=== PATIENT | female | born 2000 | race Caucasian/White ===

== ENCOUNTER 2023-02-19 20:56 | Inpatient (IN) ==
--- NOTE | 2023-02-19 23:06 | Ultrasound Report ---
Exam(s): US OB LIMITED EXAM: US , Limited CLINICAL HISTORY: Reason for exam: to confirm 40 week demise. TECHNIQUE: Real-time limited ultrasound of the maternal uterus with image documentation. COMPARISON: Ultrasound November 11, 2022. FINDINGS: Single intrauterine gestation in cephalic presentation. Placenta is anterior. Amniotic fluid is low with OLGA of 5.7 cm. No heart motion is detected. IMPRESSION: demise. Electronically signed by: Reymundo Asencio MD 02/19/23 23:05 PM
[2023-02-19] MEDS ORDERED: LIDOCAINE 1% LOCAL 20 ML VIAL INFIL PRN (23:17)
[2023-02-19] MEDS ORDERED: OXYTOCIN 30 UNITS/500 ML BAG IV PRN ×2 (23:17→23:24)
[2023-02-19] MEDS: LACTATED RINGER'S 1,000 ML IV PRN (23:46)
--- NOTE | 2023-02-20 00:01 | History & Physical Report ---
Date of Service February 19, 2023 Assessment & Plan (1) IUFD at 20 weeks or more of gestation: Plan: 23 yo G1 at 39 3/7 wga now dx w/ IUFD at term. -VSS -Condolences given to pt and her . Discussed potential causes to IUFD including unexplained. Discussed lab evaluation, genetics, and autopsy evaluation in detail with possibility of no cause being found despite all of this. Discussed induction now vs scheduling induction later this week if needs time to process -pt amenable to initiating lab evaluation, she will consider genetics and autopsy for further evaluation -would like to start induction process now. Cervix is 3-4cm so will start pit. Epidural available at her request -ample time given for questions, answered to apparent satisfaction Admission and Anticipated Discharge Date Admission Date: February 19, 2023 History of Present Illness Chief Complaint: ctx, decreased fm Primary Care Provider: NO PCP 23 yo G1 at 39 3/7 wga presents w/ c/o ctx increasing in frequency and intensity. Mucous plug fell out and had small amount of bleeding but none after. Denies LOF. Notes has had less movement over last week but reported a little bit of movement earlier today PNI: [facility] Past SPEECH LANGUAGE THERAPIST Hx: regular cycles denies hx STIs 09/2022 neg cyto Allergies Allergy/AdvReac Type Severity Reaction Status Date / Time No Known Allergies Allergy Verified 02/13/23 09:13 Home Medications Medication Instructions Recorded Confirmed Type prenat.vits,mary,vsi-[id number] 1 tab PO DAILY 08/01/22 02/19/23 History Patient History Medical History (Updated 02/19/23 @ 23:58 by Shahnaz Addison MD) History of chicken pox Surgical History S/P wisdom tooth extraction Family History Grandmother (Maternal) Breast cancer Grandfather (Maternal) Colorectal cancer great grandfather Grandmother (Maternal) Ovarian cancer great grandmother Social History (Updated 02/12/23 @ 16:39 by Lisa Aldana, RN) Smoking Status: Never smoker Hx Alcohol Use: No Hx Substance Use: No Preferred Language: Trinidadian Communication Ability: Effective Timber Harvester Operator Required: No Beliefs That Will Affect Care: None marital status: marital status details: Ben Bravo (24) [phone] Current Living Situation: Spouse Current Living Situation Comment: lives with spouse, dog, cat-spouse changing litter current occupational status: employed current occupation: [employer] Feels Safe at Home: Yes Safety Concerns: Feels Safe At This Time Assistive Devices: None Physical Exam Genitourinary: OB Exam Abdomen: + vertex Manual OB Exam: + cervical dilation 3 cm, + cervical effacement 70% and + station -2 Nursing unable to identify FHT and so I was called to bedside. My bedside US did not identify heart motion. Formal US was ordered stat and confirmed no FHT c/w IUFD Results & Data Vital Signs (Past 12 Hours) Vital Signs Temp Pulse Resp BP Pulse Ox 02/19/23 21:20 98 02/19/23 21:20 114 H 02/19/23 21:15 110 H 98 02/19/23 21:10 97 02/19/23 21:10 93 H 02/19/23 21:10 84 133/70 02/19/23 21:10 98.1 F 18 Laboratory Results OB Labs: Blood Type A Positive 08/17/22 Antibody Screen NEGATIVE 08/17/22 Hemoglobin 12.3 g/dl (12.0-16.0) 12/02/22 Hematocrit 35.3 % (34.1-44.9) 12/02/22 Mean Corpuscular Volume 91.4 fL (80.0-100.0) 08/17/22 Platelet Count 267 K/uL (130-400) 08/17/22 Rubella IgG Antibody Immune (Immune) 08/17/22 Rapid Plasma Reagin Nonreactive (Nonreactive) 12/02/22 Hepatitis B Surface Antigen. NON-REACTIVE (NON-REACTIVE) 08/17/22 Hepatitis C Antibody (EIA) NON-REACTIVE (NON-REACTIVE) 08/17/22 HIV (1&2) Ag and Ab Confirmation NON-REACTIVE (NON-REACTIVE) 08/17/22 Glucose 1 Hour 50 gm Load 107 mg/dl (70-130) 12/02/22 Maternal Serum Alpha Fetoprotein 54.3 ng/mL 09/19/22 OB Optional Labs: Chlamydia trachomatis RNA Not Detected (NotDetected) 08/17/22 Neisseria gonorrhoeae RNA Not Detected (NotDetected) 08/17/22 Alpha Fetoprotein Triple Screen SEE NOTE 09/19/22 low risk cfdna gbs neg Coding Level of Care Code None Diagnoses IUFD at 20 weeks or more of gestation O36.4XX0
[2023-02-20 00:12] LABS: Alanine Aminotransferase 19 U/L (7-52); Albumin Globulin Ratio 1.1 (0.9-2); Albumin Level 3.5 gm/dl (3.4-5.0); Alkaline Phosphatase 150 U/L (34-104); Anion Gap 10 (3-11); Aspartate Aminotransferase 22 U/L (13-39); BUN Creatinine Ratio 13.2 (10-20); Bilirubin,Total 0.3 mg/dl (0.2-1.0); Blood Urea Nitrogen 7 mg/dl (6-23); Calcium 9.4 mg/dl (8.6-10.3); Carbon Dioxide 20 mmol/L (21-32); Chloride 106 mmol/L (98-107); Creatinine Clr Calc Pharmacy 188.8 ml/min; Est GFR (African American) > 150.0 ml/min; Est GFR (Non-African American) 134.8 ml/min; Globulin 3.1 gm/dl (2.5-4.0); Glucose 91 mg/dl (70-99(Fasting)); Potassium 3.8 mmol/L (3.5-5.1); Sodium 136 mmol/L (136-145); Total Protein 6.6 gm/dl (6.0-8.3)
[2023-02-20 00:18] LABS: Hematocrit (blood only) 34.5 % (37.0-47.0); Hemoglobin 12.5 g/dl (12.0-16.0); Mean Corpuscular Hemoglobin 32.4 pg (25.0-34.0); Mean Corpuscular Hgb Conc 36.2 g/dL (32.0-36.0); Mean Corpuscular Volume 89.4 fL (80.0-100.0); Mean Platelet Volume 11.3 fL (9.4-12.4); Platelet Count 227 K/uL (130-400); RDW Coefficient of Variation 12.9 % (11.5-14.5); RDW Standard Deviation 42.3 fL (36.4-46.3); Red Blood Count 3.86 M/uL (4.20-5.40); White Blood Count 11.53 K/ul (4.8-10.8)
[2023-02-20 01:08] LABS: Fibrinogen 485 mg/dl (184-400); INR 0.9 (0.9-1.1); Partial Thromboplastin Time 26.2 Seconds (21.0-31.0); Prothrombin Time 9.7 Seconds (9.0-12.0)
[2023-02-20] MEDS ORDERED: BUPIVACAINE 0.25% PF 30 ML VIAL ONE (01:58)
[2023-02-20] MEDS ORDERED: SODIUM CHLORIDE 0.9% PF INJ 10 ML VIAL ONE (01:58)
[2023-02-20] MEDS ORDERED: fentaNYL citrate PF 100 MCG/2 ML VIAL ONE (01:58)
[2023-02-20] MEDS ORDERED: LIDOCAINE 2%/EPINEPHRINE 1:200,000 20 ML PF ONE (01:58)
[2023-02-20] MEDS ORDERED: ePHEDrine sulfate 50 MG/ML AMP ONE (01:58)
[2023-02-20] MEDS ORDERED: fentaNYL 2MCG/ML ROPIVACAINE 1.25MG/ML 100 ML BAG EPI ONE (01:59)
[2023-02-20 02:13] LABS: Amphetamines+Metham, Urine Neg (Neg); Barbiturates, Urine Neg (Neg); Benzodiazepine, Urine Neg (Neg); Cocaine, Urine Neg (Neg); MDMA (Ecstacy), Urine Neg (Neg); Methadone, Urine Neg (Neg); Opiate, Urine Neg (Neg); Phencyclidine, Urine Neg (Neg)
[2023-02-20] MEDS ORDERED: MIDAZOLAM HCL 1 MG/ML 2ML VIAL ONE (02:25)
[2023-02-20] MEDS: LACTATED RINGER'S 1,000 ML IV PRN ×2 (02:43→10:47)
[2023-02-20] MEDS ORDERED: diphenhydrAMINE 50 MG/ML VIAL IV PRN (02:51)
[2023-02-20] MEDS ORDERED: fentaNYL 2MCG/ML ROPIVACAINE 1.25MG/ML 100 ML BAG EPI PRN (02:51)
[2023-02-20] MEDS ORDERED: NALOXONE HCL 1 MG in SODIUM CHLORIDE 0.9% 1000ML 1,000 ML IV PRN (02:51)
[2023-02-20] MEDS ORDERED: NALBUPHINE HCL INJ 10 MG/ML AMP IV PRN (02:51)
[2023-02-20] MEDS ORDERED: ONDANSETRON INJ 2 MG/ML 2 ML VIAL IV PRN (02:51)
[2023-02-20] MEDS ORDERED: ePHEDrine sulfate 50 MG/ML AMP IV PRN (02:51)
[2023-02-20] MEDS ORDERED: NALOXONE HCL 0.4 MG/1 ML VIAL/CARP IV PRN (02:51)
[2023-02-20] MEDS ORDERED: PROMETHAZINE HCL 6.25 MG in SODIUM CHLORIDE 0.9% 50 ML IV PRN (02:51)
--- NOTE | 2023-02-20 02:51 | Anesthesiology Consultation ---
Date of Service February 20, 2023 Assessment & Plan Chart Review Chart Review: Acceptable Risk for Surgery and Patient NOT seen in Pre Admission Testing Consults Requested none ASA ASA2 Proposed Anesthesia Anesthesia Type: CSE Risk / Benefits Reviewed With: PT / POA / Parent / Guardian, Accepts Plan and Informed Consent Obtained History Height/Weight Height: 5 ft 4 in Weight: 97.522 kg Allergies Allergy/AdvReac Type Severity Reaction Status Date / Time No Known Allergies Allergy Verified 02/13/23 09:13 Medications Home Medications Medication Instructions Recorded Confirmed Last Taken prenat.vits,mary,gbj-fzwl-auxbh 1 tab PO DAILY 08/01/22 02/19/23 02/12/23 Active Medications Generic Name Dose Route Start Last Admin Trade Name Freq PRN Reason Stop Dose Admin Lactated Ringer's 1,000 mls @ 125 mls/hr 02/19/23 23:17 02/20/23 02:43 Lr IV 02/21/23 23:16 125 mls/hr .Q8H PRN Administration L&D Protocol Protocol Oxytocin 30 units in 500 mls @ 6 mls/hr 02/19/23 23:24 02/20/23 01:45 Pitocin IV 02/21/23 23:23 0.36 units/hr .Q24H PRN 6 mls/hr Labor Induction/Augmentation Titration Protocol 0.36 UNITS/HR Past Medical History Medical History (Updated 02/19/23 @ 23:58 by Shahnaz Addison MD) History of chicken pox Exercise / Class Metabolic Activity II 4-5 Yardwork/Stairs/Walk up hill Past Family History Family History Grandmother (Maternal) Breast cancer Grandfather (Maternal) Colorectal cancer great grandfather Grandmother (Maternal) Ovarian cancer great grandmother Past Surgical History Surgical History S/P wisdom tooth extraction Past Anesthesia History No Hx of Anesthesia Complications and No Family Hx of Anesthesia Complications History of PONV No Hx of PONV and No Hx of Motion Sickness Social History Smoking Status: Never smoker Hx Alcohol Use: No Hx Substance Use: No Physical Exam Vital Signs Last Vital Signs Temp 36.7 C 02/19/23 21:10 Pulse 96 H 02/20/23 02:48 Resp 18 02/20/23 02:45 BP 131/78 02/20/23 02:48 Pulse Ox 96 02/20/23 02:45 ENMT Mouth: no dentition abnormality Thyromental Distance: > or= 3.5 Finger Breadths Mallampati Class: II Neck normal visual inspection Respiratory normal respiratory effort Auscultation: lungs clear to auscultation bilaterally Cardiovascular Rate/Rhythm: regular rate and regular rhythm Psychiatric Orientation: alert Testing Laboratory Results 02/19/23 23:35 02/19/23 23:35 PT 9.7 Seconds (9.0-12.0) 02/19/23 23:35 INR 0.9 (0.9-1.1) 02/19/23 23:35 APTT 26.2 Seconds (21.0-31.0) 02/19/23 23:35
[2023-02-20] MEDS ORDERED: MoRPHine SULFATE 2 MG/ML CARP IV PRN (02:52)
--- NOTE | 2023-02-20 04:13 | Labor Progress Brief Note ---
Date of Service February 20, 2023 Subjective comfortable w/ epidural Assessment & Plan (1) IUFD at 20 weeks or more of gestation: Plan: 23 yo G1 at 39 4/7 wga admitted w/ IUFD -VSS -pit at 6, now arom for very dark meconium fluid after cervix unchanged from prior nursing exam. Continue induction -labs thus far have been wnl Admission and Anticipated Discharge Date Admission Date: February 19, 2023 Physical Exam Genitourinary: Manual OB Exam: + cervical dilation 7 cm, + cervical effacement 90%, + station -1 and + amniotic fluid (thick meconium) Results & Data Vital Signs (Past 12 Hours) Vital Signs Temp Pulse Resp BP Pulse Ox 02/20/23 04:09 89 94 02/20/23 04:05 86 96 02/20/23 04:00 87 94 02/20/23 03:58 88 94 02/20/23 03:55 87 93 02/20/23 03:54 83 127/70 02/20/23 03:52 89 94 02/20/23 03:50 81 18 93 02/20/23 03:45 82 93 02/20/23 03:40 20 02/20/23 03:40 20 02/20/23 03:40 94 02/20/23 03:40 79 02/20/23 03:40 83 128/72 02/20/23 03:35 85 94 02/20/23 03:30 82 94 02/20/23 03:28 81 94 02/20/23 03:25 80 20 135/72 94 02/20/23 03:23 81 94 02/20/23 03:20 86 95 02/20/23 03:15 93 H 96 02/20/23 03:10 18 02/20/23 03:10 88 18 129/82 97 02/20/23 03:05 96 H 97 02/20/23 03:04 88 93 02/20/23 03:00 98 H 96 02/20/23 02:55 101 H 18 95 02/20/23 02:53 100 H 116/63 02/20/23 02:50 106 H 18 96 02/20/23 02:51 101 H 117/63 02/20/23 02:48 96 H 131/78 02/20/23 02:45 18 02/20/23 02:45 18 02/20/23 02:47 96 H 127/75 02/20/23 02:45 96 02/20/23 02:45 103 H 02/20/23 02:45 91 H 133/82 02/20/23 02:43 85 130/83 02/20/23 02:41 88 131/83 02/20/23 02:40 89 96 02/20/23 02:35 105 H 97 02/20/23 02:30 100 H 96 02/20/23 01:49 95 H 125/70 02/20/23 00:52 94 H 140/90 02/19/23 21:20 98 02/19/23 21:20 114 H 02/19/23 21:15 110 H 98 02/19/23 21:10 97 02/19/23 21:10 93 H 02/19/23 21:10 84 133/70 02/19/23 21:10 98.1 F 18 Coding Level of Care Code None Diagnoses IUFD at 20 weeks or more of gestation O36.4XX0
--- NOTE | 2023-02-20 09:06 | Labor Progress Brief Note ---
Date of Service February 20, 2023 Subjective denies pain. feels pressure. pit at 14 Assessment & Plan (1) IUFD at 20 weeks or more of gestation: Plan will reeval cx for 2nd stage in 1-2hr. pt to let us know if increased pressure in meantime. support given for loss. partner in room. aware i am taking over care. Admission and Anticipated Discharge Date Admission Date: February 19, 2023 Physical Exam Constitutional: WD/WN, vitals as above Genitourinary: Manual OB Exam: + cervical dilation 9 cm, + cervical effacement 100% and + station + 1 OB Exam Monitor Tracing: + external uterine monitor used (q2) Results & Data Vital Signs (Past 12 Hours) Vital Signs Temp Pulse Resp BP Pulse Ox 02/20/23 07:30 98.2 F 20 02/20/23 09:00 92 H 96 02/20/23 08:55 100 H 96 02/20/23 08:54 98 H 125/69 02/20/23 08:50 101 H 94 02/20/23 08:45 93 H 94 02/20/23 08:40 92 H 95 02/20/23 08:39 88 116/64 02/20/23 08:31 20 02/20/23 08:31 20 02/20/23 08:35 87 93 02/20/23 08:30 88 94 02/20/23 07:31 20 02/20/23 07:31 20 02/20/23 08:25 88 94 02/20/23 08:24 93 H 119/67 02/20/23 08:20 88 94 02/20/23 08:15 90 94 02/20/23 08:10 95 02/20/23 08:10 100 H 02/20/23 08:10 85 116/59 L 02/20/23 08:05 83 93 02/20/23 08:00 82 94 02/20/23 07:55 93 H 94 02/20/23 07:54 81 107/59 L 02/20/23 07:50 86 95 02/20/23 07:45 86 95 02/20/23 07:40 85 95 02/20/23 07:39 90 111/59 L 02/20/23 07:35 93 H 96 02/20/23 07:30 94 H 96 02/20/23 07:25 92 H 96 02/20/23 07:24 86 106/55 L 02/20/23 07:22 90 94 02/20/23 07:20 101 H 95 02/20/23 07:15 101 H 20 96 02/20/23 07:10 100 H 94 02/20/23 07:11 97 H 94 02/20/23 07:09 93 H 134/77 02/20/23 07:05 95 02/20/23 07:05 91 H 02/20/23 07:05 98 H 94 02/20/23 07:00 89 94 02/20/23 06:59 94 H 94 02/20/23 06:55 95 H 94 02/20/23 06:53 89 94 02/20/23 06:54 98 H 136/79 02/20/23 06:50 90 94 02/20/23 06:45 90 94 02/20/23 06:40 93 H 94 02/20/23 04:12 18 02/20/23 04:12 98.2 F 18 02/20/23 06:39 88 132/76 94 02/20/23 06:35 102 H 94 02/20/23 06:32 85 94 02/20/23 06:30 91 H 94 02/20/23 06:26 92 H 94 02/20/23 06:25 95 H 93 02/20/23 06:24 96 H 131/77 02/20/23 06:20 89 93 02/20/23 06:19 96 H 94 02/20/23 06:15 93 H 94 02/20/23 06:10 102 H 95 02/20/23 06:09 102 H 131/80 94 02/20/23 06:05 18 02/20/23 06:05 98.6 F 102 H 18 96 02/20/23 06:00 97 H 95 02/20/23 06:01 97 H 94 02/20/23 05:55 118 H 96 02/20/23 05:54 105 H 130/78 02/20/23 05:50 99 H 94 02/20/23 05:49 107 H 94 02/20/23 05:45 104 H 95 02/20/23 05:44 107 H 94 02/20/23 05:40 99 H 96 02/20/23 05:39 106 H 127/70 02/20/23 05:38 104 H 94 02/20/23 05:35 109 H 95 02/20/23 05:30 90 93 02/20/23 05:25 94 02/20/23 05:25 91 H 02/20/23 05:25 94 H 94 02/20/23 05:24 96 H 126/72 02/20/23 05:20 95 H 94 02/20/23 05:15 90 94 02/20/23 05:12 91 H 94 02/20/23 05:10 86 136/80 95 02/20/23 05:06 94 H 93 02/20/23 05:05 92 H 97 02/20/23 05:00 103 H 96 02/20/23 04:59 85 94 02/20/23 04:55 85 94 02/20/23 04:54 88 02/20/23 04:54 90 130/87 93 02/20/23 04:50 87 94 02/20/23 04:45 94 H 94 02/20/23 04:40 95 H 96 02/20/23 04:39 92 H 129/77 02/20/23 04:35 90 95 02/20/23 04:30 98 H 97 02/20/23 04:25 95 02/20/23 04:25 87 02/20/23 04:25 93 H 94 02/20/23 04:24 86 131/79 02/20/23 04:20 87 97 02/20/23 04:19 92 H 94 02/20/23 04:15 112 H 98 02/20/23 04:10 86 94 02/20/23 04:09 93 H 02/20/23 04:09 89 134/79 94 02/20/23 04:05 86 96 02/20/23 04:00 87 94 02/20/23 03:58 88 94 02/20/23 03:55 87 93 02/20/23 03:54 83 127/70 02/20/23 03:52 89 94 02/20/23 03:50 81 18 93 02/20/23 03:45 82 93 02/20/23 03:40 20 02/20/23 03:40 20 02/20/23 03:40 94 02/20/23 03:40 79 02/20/23 03:40 83 128/72 02/20/23 03:35 85 94 02/20/23 03:30 82 94 02/20/23 03:28 81 94 02/20/23 03:25 80 20 135/72 94 02/20/23 03:23 81 94 02/20/23 03:20 86 95 02/20/23 03:15 93 H 96 02/20/23 03:10 18 02/20/23 03:10 88 18 129/82 97 02/20/23 03:05 96 H 97 02/20/23 03:04 88 93 02/20/23 03:00 98.2 F 98 H 18 96 02/20/23 02:55 101 H 18 95 02/20/23 02:53 100 H 116/63 02/20/23 02:50 106 H 18 96 02/20/23 02:51 101 H 117/63 02/20/23 02:48 96 H 131/78 02/20/23 02:45 18 02/20/23 02:45 18 02/20/23 02:47 96 H 127/75 02/20/23 02:45 96 02/20/23 02:45 103 H 02/20/23 02:45 91 H 133/82 02/20/23 02:43 85 130/83 02/20/23 02:41 88 131/83 02/20/23 02:40 89 96 02/20/23 02:35 105 H 97 02/20/23 02:30 100 H 96 02/20/23 01:49 95 H 125/70 02/20/23 00:52 94 H 140/90 02/19/23 21:20 98 02/19/23 21:20 114 H 02/19/23 21:15 110 H 98 02/19/23 21:10 97 02/19/23 21:10 93 H 02/19/23 21:10 84 133/70 02/19/23 21:10 98.1 F 18 Coding Level of Care Code None Diagnoses IUFD at 20 weeks or more of gestation O36.4XX0
[2023-02-20 09:33] LABS: Estimated Average Glucose 100 mg/dl; Hemoglobin A1C 5.1 % (4.5-5.6)
--- NOTE | 2023-02-20 11:23 | Labor Progress Brief Note ---
Date of Service February 20, 2023 Subjective feeling pressure. wants to push Assessment & Plan (1) IUFD at 20 weeks or more of gestation: Plan Begin 2nd stage. support given. Admission and Anticipated Discharge Date Admission Date: February 19, 2023 Physical Exam Constitutional: WD/WN, vitals as above Genitourinary: Manual OB Exam: + cervical dilation 10 cm, + cervical effacement 100% and + station + 2 OB Exam Monitor Tracing: + external uterine monitor used (q2-3.5 pit at 18) Results & Data Vital Signs (Past 12 Hours) Vital Signs Temp Pulse Resp BP Pulse Ox 02/20/23 07:30 98.2 F 20 02/20/23 11:20 111 H 96 02/20/23 11:15 133 H 98 02/20/23 11:10 107 H 94 02/20/23 11:09 101 H 127/68 02/20/23 11:05 102 H 96 02/20/23 11:00 93 H 94 02/20/23 10:55 93 02/20/23 10:55 98 H 02/20/23 10:55 97 H 117/61 02/20/23 10:50 97 H 94 02/20/23 10:01 20 02/20/23 10:01 20 02/20/23 10:31 20 02/20/23 10:31 20 02/20/23 10:45 108 H 96 02/20/23 10:40 104 H 96 02/20/23 10:39 94 H 115/65 02/20/23 10:35 113 H 96 02/20/23 10:30 105 H 96 02/20/23 10:01 20 02/20/23 10:01 20 02/20/23 10:25 98 H 94 02/20/23 10:24 98 H 105/62 02/20/23 09:01 20 02/20/23 09:01 20 02/20/23 09:31 20 02/20/23 09:31 20 02/20/23 10:20 103 H 94 02/20/23 10:15 106 H 95 02/20/23 10:10 110 H 97 02/20/23 10:09 102 H 136/78 02/20/23 10:05 100 H 96 02/20/23 10:00 96 H 96 02/20/23 09:55 104 H 96 02/20/23 09:54 102 H 137/87 02/20/23 09:50 100 H 96 02/20/23 09:45 101 H 95 02/20/23 09:40 96 02/20/23 09:40 101 H 02/20/23 09:40 99 H 132/78 02/20/23 09:35 97 H 95 02/20/23 09:30 102 H 96 02/20/23 09:26 106 H 133/76 02/20/23 09:25 114 H 95 02/20/23 09:20 104 H 95 02/20/23 09:15 99 H 95 02/20/23 09:10 109 H 96 02/20/23 09:09 100 H 121/68 02/20/23 09:05 106 H 96 02/20/23 09:00 92 H 96 02/20/23 08:55 100 H 96 02/20/23 08:54 98 H 125/69 02/20/23 08:50 101 H 94 02/20/23 08:45 93 H 94 02/20/23 08:40 92 H 95 02/20/23 08:39 88 116/64 02/20/23 08:31 20 02/20/23 08:31 20 02/20/23 08:35 87 93 02/20/23 08:30 88 94 02/20/23 07:31 20 02/20/23 07:31 20 02/20/23 08:25 88 94 02/20/23 08:24 93 H 119/67 02/20/23 08:20 88 94 02/20/23 08:15 90 94 02/20/23 08:10 95 02/20/23 08:10 100 H 02/20/23 08:10 85 116/59 L 02/20/23 08:05 83 93 02/20/23 08:00 82 94 02/20/23 07:55 93 H 94 02/20/23 07:54 81 107/59 L 02/20/23 07:50 86 95 02/20/23 07:45 86 95 02/20/23 07:40 85 95 02/20/23 07:39 90 111/59 L 02/20/23 07:35 93 H 96 02/20/23 07:30 94 H 96 02/20/23 07:25 92 H 96 02/20/23 07:24 86 106/55 L 02/20/23 07:22 90 94 02/20/23 07:20 101 H 95 02/20/23 07:15 101 H 20 96 02/20/23 07:10 100 H 94 02/20/23 07:11 97 H 94 02/20/23 07:09 93 H 134/77 02/20/23 07:05 95 02/20/23 07:05 91 H 02/20/23 07:05 98 H 94 02/20/23 07:00 89 94 02/20/23 06:59 94 H 94 02/20/23 06:55 95 H 94 02/20/23 06:53 89 94 02/20/23 06:54 98 H 136/79 02/20/23 06:50 90 94 02/20/23 06:45 90 94 02/20/23 06:40 93 H 94 02/20/23 04:12 18 02/20/23 04:12 98.2 F 18 02/20/23 06:39 88 132/76 94 02/20/23 06:35 102 H 94 02/20/23 06:32 85 94 02/20/23 06:30 91 H 94 02/20/23 06:26 92 H 94 02/20/23 06:25 95 H 93 02/20/23 06:24 96 H 131/77 02/20/23 06:20 89 93 02/20/23 06:19 96 H 94 02/20/23 06:15 93 H 94 02/20/23 06:10 102 H 95 02/20/23 06:09 102 H 131/80 94 02/20/23 06:05 18 02/20/23 06:05 98.6 F 102 H 18 96 02/20/23 06:00 97 H 95 02/20/23 06:01 97 H 94 02/20/23 05:55 118 H 96 02/20/23 05:54 105 H 130/78 02/20/23 05:50 99 H 94 02/20/23 05:49 107 H 94 02/20/23 05:45 104 H 95 02/20/23 05:44 107 H 94 02/20/23 05:40 99 H 96 02/20/23 05:39 106 H 127/70 02/20/23 05:38 104 H 94 02/20/23 05:35 109 H 95 02/20/23 05:30 90 93 02/20/23 05:25 94 02/20/23 05:25 91 H 02/20/23 05:25 94 H 94 02/20/23 05:24 96 H 126/72 02/20/23 05:20 95 H 94 02/20/23 05:15 90 94 02/20/23 05:12 91 H 94 02/20/23 05:10 86 136/80 95 02/20/23 05:06 94 H 93 02/20/23 05:05 92 H 97 02/20/23 05:00 103 H 96 02/20/23 04:59 85 94 02/20/23 04:55 85 94 02/20/23 04:54 88 02/20/23 04:54 90 130/87 93 02/20/23 04:50 87 94 02/20/23 04:45 94 H 94 02/20/23 04:40 95 H 96 02/20/23 04:39 92 H 129/77 02/20/23 04:35 90 95 02/20/23 04:30 98 H 97 02/20/23 04:25 95 02/20/23 04:25 87 02/20/23 04:25 93 H 94 02/20/23 04:24 86 131/79 02/20/23 04:20 87 97 02/20/23 04:19 92 H 94 02/20/23 04:15 112 H 98 02/20/23 04:10 86 94 02/20/23 04:09 93 H 02/20/23 04:09 89 134/79 94 02/20/23 04:05 86 96 02/20/23 04:00 87 94 02/20/23 03:58 88 94 02/20/23 03:55 87 93 02/20/23 03:54 83 127/70 02/20/23 03:52 89 94 02/20/23 03:50 81 18 93 02/20/23 03:45 82 93 02/20/23 03:40 20 02/20/23 03:40 20 02/20/23 03:40 94 02/20/23 03:40 79 02/20/23 03:40 83 128/72 02/20/23 03:35 85 94 02/20/23 03:30 82 94 02/20/23 03:28 81 94 02/20/23 03:25 80 20 135/72 94 02/20/23 03:23 81 94 02/20/23 03:20 86 95 02/20/23 03:15 93 H 96 02/20/23 03:10 18 02/20/23 03:10 88 18 129/82 97 02/20/23 03:05 96 H 97 02/20/23 03:04 88 93 02/20/23 03:00 98.2 F 98 H 18 96 02/20/23 02:55 101 H 18 95 02/20/23 02:53 100 H 116/63 02/20/23 02:50 106 H 18 96 02/20/23 02:51 101 H 117/63 02/20/23 02:48 96 H 131/78 02/20/23 02:45 18 02/20/23 02:45 18 02/20/23 02:47 96 H 127/75 02/20/23 02:45 96 02/20/23 02:45 103 H 02/20/23 02:45 91 H 133/82 02/20/23 02:43 85 130/83 02/20/23 02:41 88 131/83 02/20/23 02:40 89 96 02/20/23 02:35 105 H 97 02/20/23 02:30 100 H 96 02/20/23 01:49 95 H 125/70 02/20/23 00:52 94 H 140/90 Coding Level of Care Code None Diagnoses IUFD at 20 weeks or more of gestation O36.4XX0
--- NOTE | 2023-02-20 12:01 | Labor Progress Brief Note ---
Date of Service February 20, 2023 Subjective pushing. Assessment & Plan (1) IUFD at 20 weeks or more of gestation: Plan pt will pause from pushing. pit max increased to try to get better pattern. Admission and Anticipated Discharge Date Admission Date: February 19, 2023 Physical Exam Constitutional: WD/WN, vitals as above Genitourinary: Manual OB Exam: + cervical dilation (no change, station no change) OB Exam Monitor Tracing: + external uterine monitor used (q1.5-3.5) Results & Data Vital Signs (Past 12 Hours) Vital Signs Temp Pulse Resp BP Pulse Ox 02/20/23 09:30 98.1 F 02/20/23 07:30 98.2 F 20 02/20/23 11:55 118 H 97 02/20/23 11:54 106 H 120/57 L 02/20/23 11:44 99.0 F 02/20/23 11:50 99 H 96 02/20/23 11:45 136 H 98 02/20/23 11:40 96 02/20/23 11:40 103 H 02/20/23 11:40 100 H 122/62 02/20/23 11:35 105 H 97 02/20/23 11:30 107 H 96 02/20/23 11:25 123 H 94 02/20/23 11:24 108 H 114/57 L 02/20/23 10:31 20 02/20/23 10:31 20 02/20/23 11:20 111 H 96 02/20/23 11:15 133 H 98 02/20/23 11:10 107 H 94 02/20/23 11:09 101 H 127/68 02/20/23 11:05 102 H 96 02/20/23 11:00 93 H 94 02/20/23 10:55 93 02/20/23 10:55 98 H 02/20/23 10:55 97 H 117/61 02/20/23 10:50 97 H 94 02/20/23 10:01 20 02/20/23 10:01 20 02/20/23 10:31 20 02/20/23 10:31 20 02/20/23 10:45 108 H 96 02/20/23 10:40 104 H 96 02/20/23 10:39 94 H 115/65 02/20/23 10:35 113 H 96 02/20/23 10:30 105 H 96 02/20/23 10:01 20 02/20/23 10:01 20 02/20/23 10:25 98 H 94 02/20/23 10:24 98 H 105/62 02/20/23 09:01 20 02/20/23 09:01 20 02/20/23 09:31 20 02/20/23 09:31 20 02/20/23 10:20 103 H 94 02/20/23 10:15 106 H 95 02/20/23 10:10 110 H 97 02/20/23 10:09 102 H 136/78 02/20/23 10:05 100 H 96 02/20/23 10:00 96 H 96 02/20/23 09:55 104 H 96 02/20/23 09:54 102 H 137/87 02/20/23 09:50 100 H 96 02/20/23 09:45 101 H 95 02/20/23 09:40 96 02/20/23 09:40 101 H 02/20/23 09:40 99 H 132/78 02/20/23 09:35 97 H 95 02/20/23 09:30 102 H 96 02/20/23 09:26 106 H 133/76 02/20/23 09:25 114 H 95 02/20/23 09:20 104 H 95 02/20/23 09:15 99 H 95 02/20/23 09:10 109 H 96 02/20/23 09:09 100 H 121/68 02/20/23 09:05 106 H 96 02/20/23 09:00 92 H 96 02/20/23 08:55 100 H 96 02/20/23 08:54 98 H 125/69 02/20/23 08:50 101 H 94 02/20/23 08:45 93 H 94 02/20/23 08:40 92 H 95 02/20/23 08:39 88 116/64 02/20/23 08:31 20 02/20/23 08:31 20 02/20/23 08:35 87 93 02/20/23 08:30 88 94 02/20/23 07:31 20 02/20/23 07:31 20 02/20/23 08:25 88 94 02/20/23 08:24 93 H 119/67 02/20/23 08:20 88 94 02/20/23 08:15 90 94 02/20/23 08:10 95 02/20/23 08:10 100 H 02/20/23 08:10 85 116/59 L 02/20/23 08:05 83 93 02/20/23 08:00 82 94 02/20/23 07:55 93 H 94 02/20/23 07:54 81 107/59 L 02/20/23 07:50 86 95 02/20/23 07:45 86 95 02/20/23 07:40 85 95 02/20/23 07:39 90 111/59 L 02/20/23 07:35 93 H 96 02/20/23 07:30 94 H 96 02/20/23 07:25 92 H 96 02/20/23 07:24 86 106/55 L 02/20/23 07:22 90 94 02/20/23 07:20 101 H 95 02/20/23 07:15 101 H 20 96 02/20/23 07:10 100 H 94 02/20/23 07:11 97 H 94 02/20/23 07:09 93 H 134/77 02/20/23 07:05 95 02/20/23 07:05 91 H 02/20/23 07:05 98 H 94 02/20/23 07:00 89 94 02/20/23 06:59 94 H 94 02/20/23 06:55 95 H 94 02/20/23 06:53 89 94 02/20/23 06:54 98 H 136/79 02/20/23 06:50 90 94 02/20/23 06:45 90 94 02/20/23 06:40 93 H 94 02/20/23 04:12 18 02/20/23 04:12 98.2 F 18 02/20/23 06:39 88 132/76 94 02/20/23 06:35 102 H 94 02/20/23 06:32 85 94 02/20/23 06:30 91 H 94 02/20/23 06:26 92 H 94 02/20/23 06:25 95 H 93 02/20/23 06:24 96 H 131/77 02/20/23 06:20 89 93 02/20/23 06:19 96 H 94 02/20/23 06:15 93 H 94 02/20/23 06:10 102 H 95 02/20/23 06:09 102 H 131/80 94 02/20/23 06:05 18 02/20/23 06:05 98.6 F 102 H 18 96 02/20/23 06:00 97 H 95 02/20/23 06:01 97 H 94 02/20/23 05:55 118 H 96 02/20/23 05:54 105 H 130/78 02/20/23 05:50 99 H 94 02/20/23 05:49 107 H 94 02/20/23 05:45 104 H 95 02/20/23 05:44 107 H 94 02/20/23 05:40 99 H 96 02/20/23 05:39 106 H 127/70 02/20/23 05:38 104 H 94 02/20/23 05:35 109 H 95 02/20/23 05:30 90 93 02/20/23 05:25 94 02/20/23 05:25 91 H 02/20/23 05:25 94 H 94 02/20/23 05:24 96 H 126/72 02/20/23 05:20 95 H 94 02/20/23 05:15 90 94 02/20/23 05:12 91 H 94 02/20/23 05:10 86 136/80 95 02/20/23 05:06 94 H 93 02/20/23 05:05 92 H 97 02/20/23 05:00 103 H 96 02/20/23 04:59 85 94 02/20/23 04:55 85 94 02/20/23 04:54 88 02/20/23 04:54 90 130/87 93 02/20/23 04:50 87 94 02/20/23 04:45 94 H 94 02/20/23 04:40 95 H 96 02/20/23 04:39 92 H 129/77 02/20/23 04:35 90 95 02/20/23 04:30 98 H 97 02/20/23 04:25 95 02/20/23 04:25 87 02/20/23 04:25 93 H 94 02/20/23 04:24 86 131/79 02/20/23 04:20 87 97 02/20/23 04:19 92 H 94 02/20/23 04:15 112 H 98 02/20/23 04:10 86 94 02/20/23 04:09 93 H 02/20/23 04:09 89 134/79 94 02/20/23 04:05 86 96 02/20/23 04:00 87 94 02/20/23 03:58 88 94 02/20/23 03:55 87 93 02/20/23 03:54 83 127/70 02/20/23 03:52 89 94 02/20/23 03:50 81 18 93 02/20/23 03:45 82 93 02/20/23 03:40 20 02/20/23 03:40 20 02/20/23 03:40 94 02/20/23 03:40 79 02/20/23 03:40 83 128/72 02/20/23 03:35 85 94 02/20/23 03:30 82 94 02/20/23 03:28 81 94 02/20/23 03:25 80 20 135/72 94 02/20/23 03:23 81 94 02/20/23 03:20 86 95 02/20/23 03:15 93 H 96 02/20/23 03:10 18 02/20/23 03:10 88 18 129/82 97 02/20/23 03:05 96 H 97 02/20/23 03:04 88 93 02/20/23 03:00 98.2 F 98 H 18 96 02/20/23 02:55 101 H 18 95 02/20/23 02:53 100 H 116/63 02/20/23 02:50 106 H 18 96 02/20/23 02:51 101 H 117/63 02/20/23 02:48 96 H 131/78 02/20/23 02:45 18 02/20/23 02:45 18 02/20/23 02:47 96 H 127/75 02/20/23 02:45 96 02/20/23 02:45 103 H 02/20/23 02:45 91 H 133/82 02/20/23 02:43 85 130/83 02/20/23 02:41 88 131/83 02/20/23 02:40 89 96 02/20/23 02:35 105 H 97 02/20/23 02:30 100 H 96 02/20/23 01:49 95 H 125/70 04/10/23 00:52 94 H 140/90 Coding Level of Care Code None Diagnoses IUFD at 20 weeks or more of gestation O36.4XX0
--- NOTE | 2023-02-20 13:35 | Labor Progress Brief Note ---
Date of Service February 20, 2023 Subjective ok to start pushing, Assessment & Plan (1) IUFD at 20 weeks or more of gestation: Plan will cont 2nd stage. enc and support given. Admission and Anticipated Discharge Date Admission Date: February 19, 2023 Physical Exam Constitutional: WD/WN, vitals as above Genitourinary: Manual OB Exam: + cervical dilation 10 cm, + cervical effacement 100% and + station + 3 OB Exam Monitor Tracing: + external uterine monitor used (q2-3 pit at 24) Results & Data Vital Signs (Past 12 Hours) Vital Signs Temp Pulse Resp BP Pulse Ox 02/20/23 09:30 98.1 F 02/20/23 07:30 98.2 F 20 02/20/23 13:30 114 H 97 02/20/23 13:25 116 H 97 02/20/23 13:24 136 H 127/58 L 02/20/23 13:20 113 H 97 02/20/23 13:15 108 H 95 02/20/23 13:10 95 H 95 02/20/23 13:09 90 114/63 02/20/23 12:01 20 02/20/23 12:01 20 02/20/23 13:05 100 H 95 02/20/23 13:00 103 H 95 02/20/23 12:55 99 H 95 02/20/23 12:54 87 109/62 02/20/23 12:50 94 H 95 02/20/23 12:45 85 95 02/20/23 12:40 94 H 119/60 95 02/20/23 12:35 100 H 95 02/20/23 12:30 100 H 96 02/20/23 12:25 96 02/20/23 12:25 115 H 02/20/23 12:25 107 H 117/66 02/20/23 12:20 106 H 96 02/20/23 12:15 100 H 91 02/20/23 12:10 107 H 95 02/20/23 12:09 104 H 111/57 L 02/20/23 12:05 106 H 93 02/20/23 12:00 108 H 95 02/20/23 11:55 118 H 97 02/20/23 11:54 106 H 120/57 L 02/20/23 11:44 99.0 F 02/20/23 11:50 99 H 96 02/20/23 11:45 136 H 98 02/20/23 11:40 96 02/20/23 11:40 103 H 02/20/23 11:40 100 H 122/62 02/20/23 11:35 105 H 97 02/20/23 11:30 107 H 96 02/20/23 11:25 123 H 94 02/20/23 11:24 108 H 114/57 L 02/20/23 10:31 20 02/20/23 10:31 20 02/20/23 11:20 111 H 96 02/20/23 11:15 133 H 98 02/20/23 11:10 107 H 94 02/20/23 11:09 101 H 127/68 02/20/23 11:05 102 H 96 02/20/23 11:00 93 H 94 02/20/23 10:55 93 02/20/23 10:55 98 H 02/20/23 10:55 97 H 117/61 02/20/23 10:50 97 H 94 02/20/23 10:01 20 02/20/23 10:01 20 02/20/23 10:31 20 02/20/23 10:31 20 02/20/23 10:45 108 H 96 02/20/23 10:40 104 H 96 02/20/23 10:39 94 H 115/65 02/20/23 10:35 113 H 96 02/20/23 10:30 105 H 96 02/20/23 10:01 20 02/20/23 10:01 20 02/20/23 10:25 98 H 94 02/20/23 10:24 98 H 105/62 02/20/23 09:01 20 02/20/23 09:01 20 02/20/23 09:31 20 02/20/23 09:31 20 02/20/23 10:20 103 H 94 02/20/23 10:15 106 H 95 02/20/23 10:10 110 H 97 02/20/23 10:09 102 H 136/78 02/20/23 10:05 100 H 96 02/20/23 10:00 96 H 96 02/20/23 09:55 104 H 96 02/20/23 09:54 102 H 137/87 02/20/23 09:50 100 H 96 02/20/23 09:45 101 H 95 02/20/23 09:40 96 02/20/23 09:40 101 H 02/20/23 09:40 99 H 132/78 02/20/23 09:35 97 H 95 02/20/23 09:30 102 H 96 02/20/23 09:26 106 H 133/76 02/20/23 09:25 114 H 95 02/20/23 09:20 104 H 95 02/20/23 09:15 99 H 95 02/20/23 09:10 109 H 96 02/20/23 09:09 100 H 121/68 02/20/23 09:05 106 H 96 02/20/23 09:00 92 H 96 02/20/23 08:55 100 H 96 02/20/23 08:54 98 H 125/69 02/20/23 08:50 101 H 94 02/20/23 08:45 93 H 94 02/20/23 08:40 92 H 95 02/20/23 08:39 88 116/64 02/20/23 08:31 20 02/20/23 08:31 20 02/20/23 08:35 87 93 02/20/23 08:30 88 94 02/20/23 07:31 20 02/20/23 07:31 20 02/20/23 08:25 88 94 02/20/23 08:24 93 H 119/67 02/20/23 08:20 88 94 02/20/23 08:15 90 94 02/20/23 08:10 95 02/20/23 08:10 100 H 02/20/23 08:10 85 116/59 L 02/20/23 08:05 83 93 02/20/23 08:00 82 94 02/20/23 07:55 93 H 94 02/20/23 07:54 81 107/59 L 02/20/23 07:50 86 95 02/20/23 07:45 86 95 02/20/23 07:40 85 95 02/20/23 07:39 90 111/59 L 02/20/23 07:35 93 H 96 02/20/23 07:30 94 H 96 02/20/23 07:25 92 H 96 02/20/23 07:24 86 106/55 L 02/20/23 07:22 90 94 02/20/23 07:20 101 H 95 02/20/23 07:15 101 H 20 96 02/20/23 07:10 100 H 94 02/20/23 07:11 97 H 94 02/20/23 07:09 93 H 134/77 02/20/23 07:05 95 02/20/23 07:05 91 H 02/20/23 07:05 98 H 94 02/20/23 07:00 89 94 02/20/23 06:59 94 H 94 02/20/23 06:55 95 H 94 02/20/23 06:53 89 94 02/20/23 06:54 98 H 136/79 02/20/23 06:50 90 94 02/20/23 06:45 90 94 02/20/23 06:40 93 H 94 02/20/23 04:12 18 02/20/23 04:12 98.2 F 18 02/20/23 06:39 88 132/76 94 02/20/23 06:35 102 H 94 02/20/23 06:32 85 94 02/20/23 06:30 91 H 94 02/20/23 06:26 92 H 94 02/20/23 06:25 95 H 93 02/20/23 06:24 96 H 131/77 02/20/23 06:20 89 93 02/20/23 06:19 96 H 94 02/20/23 06:15 93 H 94 02/20/23 06:10 102 H 95 02/20/23 06:09 102 H 131/80 94 02/20/23 06:05 18 02/20/23 06:05 98.6 F 102 H 18 96 02/20/23 06:00 97 H 95 02/20/23 06:01 97 H 94 02/20/23 05:55 118 H 96 02/20/23 05:54 105 H 130/78 02/20/23 05:50 99 H 94 02/20/23 05:49 107 H 94 02/20/23 05:45 104 H 95 02/20/23 05:44 107 H 94 02/20/23 05:40 99 H 96 02/20/23 05:39 106 H 127/70 02/20/23 05:38 104 H 94 02/20/23 05:35 109 H 95 02/20/23 05:30 90 93 02/20/23 05:25 94 02/20/23 05:25 91 H 02/20/23 05:25 94 H 94 02/20/23 05:24 96 H 126/72 02/20/23 05:20 95 H 94 02/20/23 05:15 90 94 02/20/23 05:12 91 H 94 02/20/23 05:10 86 136/80 95 02/20/23 05:06 94 H 93 02/20/23 05:05 92 H 97 02/20/23 05:00 103 H 96 02/20/23 04:59 85 94 02/20/23 04:55 85 94 02/20/23 04:54 88 02/20/23 04:54 90 130/87 93 02/20/23 04:50 87 94 02/20/23 04:45 94 H 94 02/20/23 04:40 95 H 96 02/20/23 04:39 92 H 129/77 02/20/23 04:35 90 95 02/20/23 04:30 98 H 97 02/20/23 04:25 95 02/20/23 04:25 87 02/20/23 04:25 93 H 94 02/20/23 04:24 86 131/79 02/20/23 04:20 87 97 02/20/23 04:19 92 H 94 02/20/23 04:15 112 H 98 02/20/23 04:10 86 94 02/20/23 04:09 93 H 02/20/23 04:09 89 134/79 94 02/20/23 04:05 86 96 02/20/23 04:00 87 94 02/20/23 03:58 88 94 02/20/23 03:55 87 93 02/20/23 03:54 83 127/70 02/20/23 03:52 89 94 02/20/23 03:50 81 18 93 02/20/23 03:45 82 93 02/20/23 03:40 20 02/20/23 03:40 20 02/20/23 03:40 94 02/20/23 03:40 79 02/20/23 03:40 83 128/72 02/20/23 03:35 85 94 02/20/23 03:30 82 94 02/20/23 03:28 81 94 02/20/23 03:25 80 20 135/72 94 02/20/23 03:23 81 94 02/20/23 03:20 86 95 02/20/23 03:15 93 H 96 02/20/23 03:10 18 02/20/23 03:10 88 18 129/82 97 02/20/23 03:05 96 H 97 02/20/23 03:04 88 93 02/20/23 03:00 98.2 F 98 H 18 96 02/20/23 02:55 101 H 18 95 02/20/23 02:53 100 H 116/63 02/20/23 02:50 106 H 18 96 02/20/23 02:51 101 H 117/63 02/20/23 02:48 96 H 131/78 02/20/23 02:45 18 02/20/23 02:45 18 02/20/23 02:47 96 H 127/75 02/20/23 02:45 96 02/20/23 02:45 103 H 02/20/23 02:45 91 H 133/82 02/20/23 02:43 85 130/83 02/20/23 02:41 88 131/83 02/20/23 02:40 89 96 02/20/23 02:35 105 H 97 02/20/23 02:30 100 H 96 02/20/23 01:49 95 H 125/70 Coding Level of Care Code None Diagnoses IUFD at 20 weeks or more of gestation O36.4XX0
--- NOTE | 2023-02-20 14:46 | Delivery Summary ---
Vaginal Delivery Summary Date of Service February 20, 2023 Vaginal Delivery Summary and 2nd Degree LAC The patient dilated to complete and pushed to deliver a non-viable male via over 2nd degree perineal laceration with right sulcal tear. Shoulders and body rapidly delivered with ease. Infant with swelling of cephalic, pressure on nares and nuchal x 4 noted. Cord clamped and cut. Infant to nursing staff. Placenta delivered spontaneously and intact, three-vessel cord. Hemostasis not achieved with dilute pitocin and uterine massage and uterus swept for clots x 2. Methergine IM and cytotec VT given to achieve improved hemostasis. Cervix intact. Additional 1 % lidocaine administered for repair. Repairs took place in usual fashion with 3-0 vicryl. EBL 500 cc. Mother stable in recovery. Parents readying themselves to hold baby. Grief and mourning support given. They decided to send segment of cord for genetics. Still undecided about autopsy. They asked about findings at time of delivery of baby and explained what I noted above. Of note, meconium stained fluid had been seen earlier and meconium stained the placenta. skin intact, no maceration. [facility] Vaginal Delivery Charge Delivery Type Details: and 2nd Degree LAC
[2023-02-20] MEDS ORDERED: HYDROCORTISONE ACETATE 25 MG SUPP PR PRN (15:57)
[2023-02-20] MEDS ORDERED: bisacodyL 10 MG SUPP PR PRN (15:57)
[2023-02-20] MEDS ORDERED: ZOLPIDEM TARTRATE 5 MG TAB PO PRN (15:57)
[2023-02-20] MEDS ORDERED: ACETAMINOPHEN 325 MG TAB PO PRN (15:57)
[2023-02-20] MEDS ORDERED: DIPHTHERIA/TETANUS/PERTUSSIS 0.5mL SYR/VIAL (Age 7+yrs) IM ONE (15:57)
[2023-02-20] MEDS ORDERED: BENZOCAINE 20% AER SPR 82.5 GM CAN EXT PRN (15:57)
[2023-02-20] MEDS ORDERED: IBUPROFEN 600 MG TAB PO PRN (15:57)
[2023-02-20] MEDS ORDERED: METHYLERGONOVINE MALEATE 0.2 MG/ML AMP IM ONE (15:57)
[2023-02-20] MEDS ORDERED: oxyCODONE/ACETAMINOPHEN 5mg/325mg TAB PO PRN (15:57)
[2023-02-20] MEDS ORDERED: miSOPROStoL 200 MCG TAB PR ONE (15:57)
[2023-02-20] MEDS ORDERED: OXYTOCIN 30 UNITS/500 ML BAG IV PRN (15:57)
[2023-02-20] MEDS ORDERED: OXYTOCIN 20 UNITS in LACTATED RINGER'S 1,000 ML IV SCH (16:15)
--- NOTE | 2023-02-20 16:47 | Anesthesia Procedure Note ---
Date of Service February 20, 2023 Anesthesia Post Epidural Note Vital Signs Vital Signs: Temp Pulse Resp BP Pulse Ox 37.2 C 120 H 20 158/86 H 95 02/20/23 11:44 02/20/23 16:33 02/20/23 15:30 02/20/23 16:33 02/20/23 14:30 Pain Intensity Bilateral Abdomen: Pain Intensity: 7 Notes Mental Status: alert / awake / arousable and participated in evaluation Nausea / Vomiting: adequately controlled Pain: adequately controlled Airway Patency, RR, SpO2: stable & adequate BP & HR: stable & adequate Hydration State: stable & adequate
[2023-02-20] MEDS: ceFAZolin 2000MG 2,000 MG/15 ML SYR IV SCH (17:34)
[2023-02-21] MEDS: ceFAZolin 2000MG 2,000 MG/15 ML SYR IV SCH ×2 (01:02→09:23)
[2023-02-21 06:22] LABS: Hemoglobin 10.4 g/dl (12.0-16.0); Mean Corpuscular Hemoglobin 32.5 pg (25.0-34.0); Mean Corpuscular Hgb Conc 35.9 g/dL (32.0-36.0); Mean Corpuscular Volume 90.6 fL (80.0-100.0); Platelet Count 182 K/uL (130-400); RDW Standard Deviation 42.9 fL (36.4-46.3); White Blood Count 18.15 K/ul (4.8-10.8)
--- NOTE | 2023-02-21 07:30 | Obstetrical Progress Note ---
Date of Service February 21, 2023 Assessment & Plan (1) IUFD at 20 weeks or more of gestation: Plan stable, coping appropriately. couple denies questions. discused pp course and instructions. plan 2wk followup in office. support given. will dc home after last dose of kefzol. Subjective Ambulation: ambulating normally Voiding: no voiding problems Diet Tolerance:: regular diet Lochia:: Small coping well with loss. Constitutional: + as per Subjective / HPI Physical Exam Constitutional WD/WN, vitals as above Respiratory normal respiratory effort, lungs clear to auscultation Cardiovascular Rate/Rhythm: regular rate and regular rhythm Gastrointestinal (Abdomen) Inspection/Auscultation: abdomen normal to inspection Percussion/Palpation: abdomen soft Fundus firm 2cm down Musculoskeletal nt calves no edema Neurologic grossly normal Psychiatric A+Ox3, euthymic affect Results & Data Vital Signs (Past 12 Hours) Vital Signs Temp Pulse Resp BP 02/21/23 03:20 99.0 F 18 02/20/23 23:06 98.6 F 18 02/20/23 19:30 98.2 F 18 02/21/23 03:19 101 H 110/65 02/20/23 23:05 113 H 128/63 02/20/23 19:31 110 H 129/80
[2023-02-21] MEDS ORDERED: PRENATAL VITAMIN 1 TAB PO SCH (08:00)
[2023-02-21] MEDS: DOCUSATE SODIUM 100 MG CAP PO SCH ×2 (09:10→10:46)
[2023-02-26 07:47] LABS: Anti Cardiolipin Ab IgG <2.0 GPL-U/mL; Anti Cardiolipin Ab IgM <2.0 MPL-U/mL; B2 Glycoprotein IgG <2.0 U/mL (<20.0); B2 Glycoprotein IgM <2.0 U/mL (<20.0)
== END 2023-02-21 12:05 | disposition home or self-care (01) | DRG 807 ==
LOC: OPB 20:56 → 4S1 20:57

== ENCOUNTER 2024-03-11 08:09 | Inpatient (IN) ==
[2024-03-11] MEDS ORDERED: LIDOCAINE 1% LOCAL 20 ML VIAL INFIL PRN (09:07)
[2024-03-11] MEDS ORDERED: OXYTOCIN 30 UNITS/NSS 30 UNITS/500 ML BAG IV PRN (09:07)
[2024-03-11] MEDS ORDERED: CALCIUM CARBONATE 500 MG CHEWABLE TAB PO PRN (09:07)
--- NOTE | 2024-03-11 09:22 | History & Physical Report ---
Date of Service March 11, 2024 Assessment & Plan (1) Encounter for induction of labor: (2) Prior with demise: Plan booker bulb out pitocin arom when indicated monitor tracing, category 1 Admission and Anticipated Discharge Date Admission Date: March 11, 2024 History of Present Illness Primary Care Provider: LIZZETTE PCP 24 yo at 38w2d admitted for IOL for prior IUFD. Booker bulb placed yesterday, fell out spontaneously this AM. Denies GOODSON, CP, SOB, N/V/D, LE pain. GBS neg, RH+, +FM, -LOF, +CTX Allergies Allergy/AdvReac Type Severity Reaction Status Date / Time No Known Allergies Allergy Verified 03/08/24 11:19 Home Medications Medication Instructions Recorded Confirmed Type prenat.vits,mary,[id number] 1 tab PO DAILY 08/01/22 03/11/24 History ferrous sulfate 325 mg (65 mg 325 mg PO DAILY 03/08/24 03/11/24 History iron) tablet (iron) Patient History Medical History (Updated 03/11/24 @ 14:28 by Bon Key MD) Encounter for pre-operative examination IUFD at 20 weeks or more of gestation History of chicken pox Surgical History S/P wisdom tooth extraction Family History Grandmother (Maternal) Breast cancer Grandfather (Maternal) Colorectal cancer great grandfather Grandmother (Maternal) Ovarian cancer great grandmother Social History Smoking Status: Former smoker Do You Dip or Chew Tobacco: No; Hx Alcohol Use: No Hx Substance Use: No Preferred Language: Turkish Communication Ability: Effective Process Equipment Operator Required: No Beliefs That Will Affect Care: None marital status: marital status details: Mik Bravo (25) [phone] Current Living Situation: Spouse Current Living Situation Comment: lives with spouse, lizard, dog, cat-spouse changing litter current occupational status: employed current occupation: [employer] Feels Safe at Home: Yes Safety Concerns: Feels Safe At This Time Assistive Devices: Glasses OB History : 2 Full term: 1 Premature: 0 Total Number of Induced Abortions: 0 Total Number of Spontaneous Abortions: 0 Ectopics: 0 Multiple births: 0 Number of Living Children: 0 Review of Systems reviewed, per HPI Physical Exam Physical Exam: General: patient resting comfortably, NAD, non-toxic in appearance, answers questions appropriately. Skin: warm, dry, intact HEENT: NC/AT, anicteric sclera, conjunctiva without injection, moist mucus membranes Heart: +S1/S2, regular, no m/r/g Lungs: equal air entry bilaterally, no rales/rhonchi/wheezes Abd: +BS, soft, NT/ND, gravid uterus Cervical: 3cm, thick, high Ext: warm, no clubbing/cyanosis or edema Neuro: nonfocal, speech intact, no facial droop, moving all extremities : FHR baseline 140, moderate variability, accelerations present, decelerations absent Results & Data Vital Signs (Past 12 Hours) Vital Signs Temp Pulse Resp BP 03/11/24 08:27 36.4 C L 100 H 20 115/72 03/11/24 08:17 100 H 115/72 03/11/24 08:12 20 03/11/24 08:12 36.4 C L 20 Supervising Physician Co-Signing Physician Notes Resident Physician Supervision Note: I interviewed and examined the patient. Discussed with Dr. Vallejo and agree with findings and plan as documented in the note. Any exceptions or clarifications are listed here: [ ] Documented By: Fernanda Kaye MD, FACOG Resident Activity Tracking Resident Involvement: Resident Care Provided Care Provided: Adult Hospital Medicine
[2024-03-11] MEDS: LACTATED RINGER'S 1,000 ML IV PRN (09:49)
[2024-03-11] MEDS: OXYTOCIN 30 UNITS/NSS 30 UNITS/500 ML BAG IV PRN (09:55)
[2024-03-11 10:01] LABS: Hematocrit (blood only) 36.1 % (37.0-47.0); Hemoglobin 12.7 g/dl (12.0-16.0); Mean Corpuscular Hemoglobin 32.4 pg (25.0-34.0); Mean Corpuscular Hgb Conc 35.2 g/dL (32.0-36.0); Mean Corpuscular Volume 92.1 fL (80.0-100.0); Mean Platelet Volume 11.6 fL (9.4-12.4); Platelet Count 183 K/uL (130-400); RDW Coefficient of Variation 12.5 % (11.5-14.5); RDW Standard Deviation 41.3 fL (36.4-46.3); Red Blood Count 3.92 M/uL (4.20-5.40); White Blood Count 10.79 K/ul (4.8-10.8)
[2024-03-11] MEDS: ACETAMINOPHEN 325 MG TAB PO PRN (12:19)
[2024-03-11] MEDS ORDERED: NALOXONE HCL 1 MG in SODIUM CHLORIDE 0.9% 1,000 ML IV PRN ×2 (14:26→19:48)
[2024-03-11] MEDS ORDERED: NALOXONE HCL 0.4 MG/1 ML VIAL/CARP IV PRN ×2 (14:26→19:48)
[2024-03-11] MEDS ORDERED: BUPIVACAINE 0.25% PF 30 ML VIAL EPI PRN (14:26)
[2024-03-11] MEDS ORDERED: LIDOCAINE 2% MPF LOCAL 5 ML VIAL EPI PRN (14:26)
[2024-03-11] MEDS ORDERED: SODIUM CHLORIDE 0.9% PF INJ 10 ML VIAL EPI PRN (14:26)
[2024-03-11] MEDS ORDERED: ONDANSETRON INJ 2 MG/ML 2 ML VIAL IV PRN ×2 (14:26→19:48)
[2024-03-11] MEDS ORDERED: fentANYL 2 MCG/ML BUPIVacaine 0.125%-NSS 100ML BAG EPI PRN (14:26)
[2024-03-11] MEDS ORDERED: diphenhydrAMINE 50 MG/ML VIAL IV PRN ×2 (14:26→19:48)
[2024-03-11] MEDS ORDERED: fentaNYL citrate PF 100 MCG/2 ML VIAL EPI PRN (14:26)
[2024-03-11] MEDS ORDERED: ROPIVACAINE 0.5% PF 5 MG/ML 20 ML VIAL EPI PRN (14:26)
[2024-03-11] MEDS ORDERED: ePHEDrine sulfate 50 MG/ML AMP IV PRN ×2 (14:26→19:48)
[2024-03-11] MEDS ORDERED: NALBUPHINE HCL 5 MG in SYRINGE 0 ML IV PRN ×2 (14:26→19:48)
--- NOTE | 2024-03-11 14:28 | Anesthesiology Consultation ---
Date of Service March 11, 2024 Assessment & Plan (1) Encounter for pre-operative examination: Chart Review Chart Review: Patient NOT seen in Pre Admission Testing and Acceptable Risk for Labor Epidural Consults Requested none History Height/Weight Height: 5 ft 4 in Weight: 96.615 kg Allergies Allergy/AdvReac Type Severity Reaction Status Date / Time No Known Allergies Allergy Verified 03/08/24 11:19 Medications Home Medications Medication Instructions Recorded Confirmed Last Taken prenat.vits,mary,gek-svjs-gybmc 1 tab PO DAILY 08/01/22 03/11/24 03/09/24 09:00 ferrous sulfate 325 mg (65 mg 325 mg PO DAILY 03/08/24 03/11/24 03/09/24 09:00 iron) tablet (iron) Active Medications Generic Name Dose Route Start Last Admin Trade Name Freq PRN Reason Stop Dose Admin Acetaminophen 650 mg 03/11/24 09:07 03/11/24 12:19 Acetaminophen 325 Mg Tab PO 04/10/24 09:06 650 mg Q6H PRN Administration Pain Oxytocin 30 units in 500 mls @ 10 mls/hr 03/11/24 09:12 03/11/24 13:00 Pitocin 30 Units/Nss IV 03/13/24 09:11 0.6 units/hr .Q24H PRN 10 mls/hr Labor Induction/Augmentation Titration Protocol 0.6 UNITS/HR Lactated Ringer's 1,000 mls @ 125 mls/hr 03/11/24 09:07 03/11/24 14:32 Lr IV 03/13/24 09:06 999 mls/hr .Q8H PRN Administration L&D Protocol Protocol Past Medical History Medical History (Updated 03/11/24 @ 14:28 by Bon Key MD) Encounter for pre-operative examination IUFD at 20 weeks or more of gestation History of chicken pox Exercise / Class Metabolic Activity II 4-5 Yardwork/Stairs/Walk up hill Past Family History Family History Grandmother (Maternal) Breast cancer Grandfather (Maternal) Colorectal cancer great grandfather Grandmother (Maternal) Ovarian cancer great grandmother Past Surgical History Surgical History S/P wisdom tooth extraction Past Anesthesia History No Hx of Anesthesia Complications and No Family Hx of Anesthesia Complications History of PONV No Hx of PONV and No Hx of Motion Sickness Social History Smoking Status: Former smoker Do You Dip or Chew Tobacco: No Hx Alcohol Use: No Hx Substance Use: No substance use type: does not use Physical Exam Vital Signs Last Vital Signs Temp 36.6 C 03/11/24 13:58 Pulse 72 03/11/24 14:44 Resp 22 03/11/24 13:58 BP 122/76 03/11/24 14:44 Pulse Ox 96 03/11/24 14:43 Testing Laboratory Results 03/11/24 09:21
[2024-03-11] MEDS: LIDOCAINE 2%/EPINEPHRINE 1:200,000 20 ML PF ONE (14:47)
[2024-03-11] MEDS: BUPIVACAINE 0.25% PF 30 ML VIAL ONE (14:47)
[2024-03-11] MEDS: fentaNYL citrate PF 100 MCG/2 ML VIAL ONE (14:47)
[2024-03-11] MEDS: fentANYL 2 MCG/ML BUPIVacaine 0.125%-NSS 100ML BAG ONE (14:49)
--- NOTE | 2024-03-11 16:06 | Labor Progress Brief Note ---
Date of Service March 11, 2024 Subjective Called to see pt by PASTORA Jones. Patient called out d/t feeling dizzy and having a generalized sensation that something is wrong, "feels weird." Specifically denies SOB, CP, GOODSNO, vision change, RUQ pain, calf pain. Comfortable with epidural. Assessment & Plan (1) Anxiety: Plan: Patient does note a history of anxiety, not previously requiring medication. Her nonspecific feeling of doom without specific cardiovascular symptoms or significant exam findings is highly suspicious for a panic attack. This would be especially understandable in the setting of IOL today, having undergone her prior IOL for an IUFD. Will get H&H, FSBG, EKG, and observe closely for clinical changes, while primarily aiming to reassure and calm patient. Admission and Anticipated Discharge Date Admission Date: March 11, 2024 Physical Exam Physical Exam: Vitals reviewed. Near baseline for this patient, ~10mmHg reduction in systolic and ~10bpm increase in pulse to 102-103 are the only changes. O2 sats high-90s. Speech is clear, facial expression anxious with a nervous intermittent smile. Sitting upright in bed, breathing at a normal rate and nonlabored. Abdomen gravid, NT. LE's with trace edema, 2+ DTRs, neg Sotero's. Results & Data Vital Signs (Past 12 Hours) Vital Signs Temp Pulse Resp BP Pulse Ox 03/11/24 15:58 96 03/11/24 15:58 102 H 03/11/24 15:53 96 03/11/24 15:53 103 H 03/11/24 15:49 73 03/11/24 15:49 105/58 L 03/11/24 15:48 97 03/11/24 15:48 76 03/11/24 15:43 96 03/11/24 15:43 86 03/11/24 15:42 86 03/11/24 15:42 109/63 03/11/24 15:40 91 H 03/11/24 15:40 115/66 03/11/24 15:38 96 03/11/24 15:38 85 03/11/24 15:33 96 03/11/24 15:33 77 03/11/24 15:33 110/61 03/11/24 15:28 96 03/11/24 15:28 81 03/11/24 15:23 95 03/11/24 15:23 80 03/11/24 15:18 97 03/11/24 15:18 92 H 03/11/24 15:17 96 H 03/11/24 15:17 118/72 03/11/24 15:13 96 03/11/24 15:13 89 03/11/24 15:12 85 03/11/24 15:12 116/64 03/11/24 15:08 95 03/11/24 15:08 89 03/11/24 15:07 85 03/11/24 15:07 115/65 03/11/24 15:03 95 03/11/24 15:03 88 03/11/24 15:02 94 03/11/24 15:02 85 03/11/24 15:02 110/61 03/11/24 14:58 95 03/11/24 14:58 87 03/11/24 14:57 84 03/11/24 14:57 111/57 L 03/11/24 14:56 94 03/11/24 14:56 86 03/11/24 14:54 86 03/11/24 14:54 113/64 03/11/24 14:53 95 03/11/24 14:53 86 03/11/24 14:52 88 03/11/24 14:52 122/62 03/11/24 14:50 88 03/11/24 14:50 114/55 L 03/11/24 14:48 88 03/11/24 14:48 114/60 03/11/24 14:48 95 03/11/24 14:48 86 03/11/24 14:46 85 03/11/24 14:46 126/72 03/11/24 14:44 72 03/11/24 14:44 122/76 03/11/24 14:43 96 03/11/24 14:43 76 03/11/24 14:43 122/70 03/11/24 14:38 97 03/11/24 14:38 90 03/11/24 14:33 95 03/11/24 14:33 86 03/11/24 14:28 97 03/11/24 14:28 80 03/11/24 14:23 97 03/11/24 14:23 79 03/11/24 13:58 22 03/11/24 13:58 22 03/11/24 13:58 80 03/11/24 13:58 121/68 03/11/24 13:58 97.9 F 03/11/24 12:04 21 03/11/24 12:04 98.1 F 21 03/11/24 12:04 83 03/11/24 12:04 113/69 03/11/24 11:02 91 H 03/11/24 11:02 116/61 03/11/24 09:59 20 03/11/24 09:59 98.4 F 20 03/11/24 09:59 90 03/11/24 09:59 108/61 03/11/24 08:27 97.5 F L 100 H 20 115/72 03/11/24 08:17 100 H 115/72 03/11/24 08:12 20 03/11/24 08:12 97.5 F L 20 Coding Level of Care Code None Diagnoses Anxiety F41.9
[2024-03-11 16:24] LABS: Hemoglobin 12.5 g/dl (12.0-16.0)
[2024-03-11] MEDS: SODIUM CHLORIDE 0.9% PF INJ 10 ML VIAL EPI STA (17:19)
[2024-03-11] MEDS: LIDOCAINE 2%/EPINEPHRINE 1:200,000 20 ML PF EPI STA (17:19)
[2024-03-11] MEDS: ePHEDrine sulfate 50 MG/ML AMP ONE (17:19)
[2024-03-11] MEDS: BUPIVACAINE 0.25% PF 30 ML VIAL EPI STA (17:19)
[2024-03-11] MEDS: fentaNYL citrate PF 100 MCG/2 ML VIAL EPI STA (17:19)
[2024-03-11] MEDS: SODIUM CHLORIDE 0.9% PF INJ 10 ML VIAL ONE (17:19)
--- NOTE | 2024-03-11 18:52 | Labor Progress Brief Note ---
Date of Service March 11, 2024 Subjective Called to room by RN who checked patient and "doesn't feel a presenting part." Assessment & Plan (1) Face presentation of fetus: Plan Face presentation, Mentum L transverse. This is different than at the time of AROM when skull was palpable in the usual presentation. Patient was counseled and agreeable to a recommended . Consent process completed, all questions answered. Admission and Anticipated Discharge Date Admission Date: March 11, 2024 Physical Exam Genitourinary: FHT Cat 1 Cvx /-2 Face presentation identified with mentum transverse L Pitocin turned off, situation explained to patient. section recommended and accepted. Results & Data Vital Signs (Past 12 Hours) Vital Signs Temp Pulse Resp BP Pulse Ox 03/11/24 18:43 97 03/11/24 18:43 104 H 03/11/24 18:38 97 03/11/24 18:38 89 03/11/24 18:34 94 03/11/24 18:34 85 03/11/24 18:33 95 03/11/24 18:33 83 03/11/24 18:33 111/67 03/11/24 18:28 94 03/11/24 18:28 86 03/11/24 18:28 94 03/11/24 18:28 82 03/11/24 18:23 94 03/11/24 18:23 79 03/11/24 18:18 96 03/11/24 18:18 93 H 03/11/24 18:18 118/64 03/11/24 18:16 93 03/11/24 18:16 83 03/11/24 18:13 95 03/11/24 18:13 86 03/11/24 18:10 94 03/11/24 18:10 82 03/11/24 18:08 96 03/11/24 18:08 84 03/11/24 18:03 95 03/11/24 18:03 87 03/11/24 18:03 115/69 03/11/24 17:58 96 03/11/24 17:58 85 03/11/24 17:53 95 03/11/24 17:53 89 03/11/24 17:49 86 03/11/24 17:49 117/69 03/11/24 17:48 97 03/11/24 17:48 85 03/11/24 17:43 96 03/11/24 17:43 88 03/11/24 17:38 97 03/11/24 17:38 88 03/11/24 17:34 86 03/11/24 17:34 118/67 03/11/24 17:33 96 03/11/24 17:33 85 03/11/24 17:28 96 03/11/24 17:28 92 H 03/11/24 17:23 97 03/11/24 17:23 86 03/11/24 17:18 95 03/11/24 17:18 90 03/11/24 17:18 118/70 03/11/24 17:13 96 03/11/24 17:13 87 03/11/24 17:08 96 03/11/24 17:08 86 03/11/24 17:04 92 H 03/11/24 17:04 98.1 F 20 113/69 03/11/24 17:03 96 03/11/24 17:03 92 H 03/11/24 16:58 95 03/11/24 16:58 83 03/11/24 16:57 94 03/11/24 16:57 84 03/11/24 16:53 94 03/11/24 16:53 76 03/11/24 16:50 94 03/11/24 16:50 75 03/11/24 16:48 94 03/11/24 16:48 77 03/11/24 16:48 115/63 03/11/24 16:45 94 03/11/24 16:45 81 03/11/24 16:43 95 03/11/24 16:43 77 03/11/24 16:38 95 03/11/24 16:38 85 03/11/24 16:33 95 03/11/24 16:33 85 03/11/24 16:33 21 118/63 03/11/24 16:28 96 03/11/24 16:28 89 03/11/24 16:23 96 03/11/24 16:23 91 H 03/11/24 16:18 90 03/11/24 16:18 116/64 03/11/24 16:18 96 03/11/24 16:18 97 H 03/11/24 16:13 97 03/11/24 16:13 117 H 03/11/24 16:08 96 03/11/24 16:08 100 H 03/11/24 16:03 96 03/11/24 16:03 94 H 20 03/11/24 16:03 123/78 03/11/24 15:58 96 03/11/24 15:58 102 H 03/11/24 15:53 96 03/11/24 15:53 103 H 03/11/24 15:49 73 03/11/24 15:49 105/58 L 03/11/24 15:48 97 03/11/24 15:48 76 03/11/24 15:43 96 03/11/24 15:43 86 03/11/24 15:42 86 03/11/24 15:42 109/63 03/11/24 15:40 91 H 03/11/24 15:40 115/66 03/11/24 15:38 96 03/11/24 15:38 85 03/11/24 15:33 96 03/11/24 15:33 77 03/11/24 15:33 20 110/61 03/11/24 15:28 96 03/11/24 15:28 81 03/11/24 15:23 95 03/11/24 15:23 80 03/11/24 15:18 97 03/11/24 15:18 92 H 03/11/24 15:17 96 H 03/11/24 15:17 118/72 03/11/24 15:13 96 03/11/24 15:13 89 03/11/24 15:12 85 03/11/24 15:12 116/64 03/11/24 15:08 95 03/11/24 15:08 89 03/11/24 15:07 85 03/11/24 15:07 18 115/65 03/11/24 15:03 95 03/11/24 15:03 88 03/11/24 15:02 94 03/11/24 15:02 85 03/11/24 15:02 110/61 03/11/24 14:58 95 03/11/24 14:58 87 03/11/24 14:57 84 03/11/24 14:57 111/57 L 03/11/24 14:56 94 03/11/24 14:56 86 03/11/24 14:54 86 03/11/24 14:54 113/64 03/11/24 14:53 95 03/11/24 14:53 86 03/11/24 14:52 88 03/11/24 14:52 122/62 03/11/24 14:50 88 03/11/24 14:50 114/55 L 03/11/24 14:48 88 03/11/24 14:48 114/60 03/11/24 14:48 95 03/11/24 14:48 86 03/11/24 14:46 85 03/11/24 14:46 126/72 03/11/24 14:44 72 03/11/24 14:44 122/76 03/11/24 14:43 96 03/11/24 14:43 76 03/11/24 14:43 122/70 03/11/24 14:38 97 03/11/24 14:38 90 03/11/24 14:33 95 03/11/24 14:33 86 03/11/24 14:28 97 03/11/24 14:28 80 03/11/24 14:23 97 03/11/24 14:23 79 03/11/24 13:58 22 03/11/24 13:58 22 03/11/24 13:58 80 03/11/24 13:58 121/68 03/11/24 13:58 97.9 F 03/11/24 12:04 21 03/11/24 12:04 98.1 F 21 03/11/24 12:04 83 03/11/24 12:04 113/69 03/11/24 11:02 91 H 03/11/24 11:02 116/61 03/11/24 09:59 20 03/11/24 09:59 98.4 F 20 03/11/24 09:59 90 03/11/24 09:59 108/61 03/11/24 08:27 97.5 F L 100 H 20 115/72 03/11/24 08:17 100 H 115/72 03/11/24 08:12 20 03/11/24 08:12 97.5 F L 20 Coding Level of Care Code None Diagnoses Face presentation of fetus O32.3XX0
[2024-03-11] MEDS ORDERED: OXYTOCIN 10 UNITS/ML VIAL ONE (18:54)
[2024-03-11] MEDS ORDERED: PHENYLEPHRINE 100MCG/ML 10ML SYR IV ONE (18:55)
[2024-03-11] MEDS ORDERED: ONDANSETRON INJ 2 MG/ML 2 ML VIAL ONE (18:55)
[2024-03-11] MEDS ORDERED: LIDOCAINE 2%/EPINEPHRINE 1:200,000 20 ML PF ONE (18:55)
[2024-03-11] MEDS ORDERED: MoRPHine SULFATE PF 1 MG/ML 10 ML AMP/VIAL ONE (18:57)
[2024-03-11] MEDS ORDERED: LACTATED RINGER'S 1,000 ML IV SCH (19:00)
[2024-03-11] MEDS: CITRIC ACID/SODIUM CITRATE 15 ML UDC PO SCH (19:04)
[2024-03-11] MEDS: ceFAZolin 2000MG 2,000 MG/15 ML SYR IV SCH (19:05)
[2024-03-11] MEDS: CITRIC ACID/SODIUM CITRATE 15 ML UDC ONE (19:28)
[2024-03-11] MEDS ORDERED: MoRPHine SULFATE PF 1 MG/ML 10 ML AMP/VIAL EPI ONE (19:48)
[2024-03-11] MEDS ORDERED: KETOROLAC 30 MG/ML VIAL IV PRN (19:48)
[2024-03-11] MEDS ORDERED: LACTATED RINGER'S 500 ML IV PRN (19:48)
[2024-03-11] MEDS ORDERED: NALOXONE HCL 0.08 MG in SYRINGE 1.8 ML IV PRN (19:48)
[2024-03-11] MEDS ORDERED: PHENYLEPHRINE HCL 10 MG/ML VIAL ONE (19:48)
[2024-03-11] MEDS ORDERED: PROMETHAZINE HCL 6.25 MG in SODIUM CHLORIDE 0.9% 50 ML IV PRN (19:48)
[2024-03-11] MEDS ORDERED: KETOROLAC 30 MG/ML VIAL ONE (19:50)
[2024-03-11] MEDS ORDERED: SODIUM CHLORIDE 0.9% 1,000 ML IV SCH (20:00)
[2024-03-11] MEDS ORDERED: NO NARCOTICS OR SEDATIVES SCH (20:00)
[2024-03-11] MEDS ORDERED: DC INTRASPINAL MORPHINE SCH (20:00)
--- NOTE | 2024-03-11 20:09 | Operative Report ---
PG Post Operative Report Pre & Post Diagnosis Operation Date: 03/11/24 19:00 Pre-Op Diagnosis: SIUP @ 38w2d, IOL due to history of IUFD at term in prior , Face Presentation Post-Op Diagnosis: Same as pre op I identified the patient and participated in the time-out.: Yes Procedure Operation Date: 03/11/24 19:00 Actual Procedures Primary Low Transverse Section Surgeon Fernanda Kaye MD Manager Call Pauline Swift Estimated Blood Loss 521 Findings Consistent with Post-Op Diagnosis Specimens Placenta, cord blood Anesthesia Type L&D Only Epidural Exists Complications none Disposition Accompanied Patient To Recovery: Yes Disposition: L&D Description of Procedure The patient was placed operating table in the supine position with a leftward tilt. She was prepped and draped in standard sterile fashion. The anesthetic was tested and found to be adequate. A time-out was held, identifying correct patient, procedure, positioning and preoperative antibiotics. There were no concerns. A Pfannenstiel skin incision was made with a knife and taken down to the underlying layer of fascia. The fascia was incised in the midline with the knife and taken out laterally with scissors. The superior edge of the fascial incision was grasped, elevated and dissected off the underlying rectus both superiorly and inferiorly. The muscles were bluntly in the midline. The peritoneum was entered bluntly. The incision was then stretched. The Wolf retractor was placed. The vesicouterine peritoneum was identified, entered with scissors and taken out laterally with scissors. The bladder flap was created digitally. A hysterotomy incision was created transversely in the lower uterine segment, final entry being accomplished in a blunt manner with the airconditioning plant operator's fingers. Clear amniotic fluid was encountered. The airconditioning plant operator's hand was used to elevate the head to the hysterotomy. It was noted to present face-first through the hysterotomy, as the neck was in extension with the face previously presenting directly to the cervix. The head was delivered using mild fundal pressure, and the shoulders and body followed without difficulty. The cord was clamped and cut and the was then handed off to the awaiting tobacco feeder catcher. Cord blood was obtained. The placenta was Manually extracted. The uterus was exteriorized and cleared of all clot and debris with moistened laparotomy sponges. The hysterotomy incision was repaired in two layers, the first in a running locked layer, the second in an imbricating layer. The ovaries and tubes were seen to be normal bilaterally. The uterus was gently replaced in the abdomen, and the gutters were cleared of clot and debris. A final inspection of the hysterotomy revealed good hemostasis. The Wolf was removed. The rectus muscles were allowed to reapproximate naturally. The fascia was then reapproximated with 1 Vicryl in a running nonlocked manner. The fascia was examined and found to be free of defect following closure. The subcutaneous tissue was copiously irrigated and reapproximated with 0-chromic, then the skin edges were closed with 4-0 monocryl in a subcuticular fashion. A dermabond dressing was applied. The booker was found to be draining clear yellow urine at completion of the procedure. I attest to the content of the Intraoperative Record and any orders documented therein. Any exceptions are noted below. I attest to the content of the Intraoperative Record and any orders documented therein. Any exceptions are noted below. OB Procedure Charges 47204
--- NOTE | 2024-03-11 20:12 | Anesthesia Procedure Note ---
Date of Service March 11, 2024 Anesthesia Post Epidural Note Vital Signs Vital Signs: Temp Pulse Resp BP Pulse Ox 36.7 C 88 20 113/58 L 97 03/11/24 17:04 03/11/24 20:07 03/11/24 17:04 03/11/24 20:07 03/11/24 20:06 Notes Mental Status: alert / awake / arousable and participated in evaluation Patient Amnestic to Procedure: No Nausea / Vomiting: adequately controlled Pain: adequately controlled Airway Patency, RR, SpO2: stable & adequate BP & HR: stable & adequate Hydration State: stable & adequate Neuraxial Anesthesia: was administered and sensory block is resolving Anesthetic Complications: no major complications apparent and Pt Satisfied with anesthetic care Epidural: Removed without complications and With tip intact
--- NOTE | 2024-03-11 20:13 | Anesthesiology Progress Note ---
Date of Service March 11, 2024 Anesthesia Post Procedure Vital Signs Vital Signs: Temp Pulse Resp BP Pulse Ox 03/11/24 20:11 92 03/11/24 20:11 85 03/11/24 20:07 88 03/11/24 20:07 113/58 L 03/11/24 20:06 97 03/11/24 20:06 88 03/11/24 19:08 96 03/11/24 19:08 102 H 03/11/24 19:03 97 03/11/24 19:03 100 H 03/11/24 19:03 134/76 03/11/24 18:58 96 03/11/24 18:58 102 H 03/11/24 18:53 96 03/11/24 18:53 96 H 03/11/24 18:48 96 03/11/24 18:48 97 H 03/11/24 18:48 127/77 03/11/24 18:43 97 03/11/24 18:43 104 H 03/11/24 18:38 97 03/11/24 18:38 89 03/11/24 18:34 94 03/11/24 18:34 85 03/11/24 18:33 95 03/11/24 18:33 83 03/11/24 18:33 111/67 03/11/24 18:28 94 03/11/24 18:28 86 03/11/24 18:28 94 03/11/24 18:28 82 03/11/24 18:23 94 03/11/24 18:23 79 03/11/24 18:18 96 03/11/24 18:18 93 H 03/11/24 18:18 118/64 03/11/24 18:16 93 03/11/24 18:16 83 03/11/24 18:13 95 03/11/24 18:13 86 03/11/24 18:10 94 03/11/24 18:10 82 03/11/24 18:08 96 03/11/24 18:08 84 03/11/24 18:03 95 03/11/24 18:03 87 03/11/24 18:03 115/69 03/11/24 17:58 96 03/11/24 17:58 85 03/11/24 17:53 95 03/11/24 17:53 89 03/11/24 17:49 86 03/11/24 17:49 117/69 03/11/24 17:48 97 03/11/24 17:48 85 03/11/24 17:43 96 03/11/24 17:43 88 03/11/24 17:38 97 03/11/24 17:38 88 03/11/24 17:34 86 03/11/24 17:34 118/67 03/11/24 17:33 96 03/11/24 17:33 85 03/11/24 17:28 96 03/11/24 17:28 92 H 03/11/24 17:23 97 03/11/24 17:23 86 03/11/24 17:18 95 03/11/24 17:18 90 03/11/24 17:18 118/70 03/11/24 17:13 96 03/11/24 17:13 87 03/11/24 17:08 96 03/11/24 17:08 86 03/11/24 17:04 92 H 03/11/24 17:04 36.7 C 20 113/69 03/11/24 17:03 96 03/11/24 17:03 92 H 03/11/24 16:58 95 03/11/24 16:58 83 03/11/24 16:57 94 03/11/24 16:57 84 03/11/24 16:53 94 03/11/24 16:53 76 03/11/24 16:50 94 03/11/24 16:50 75 03/11/24 16:48 94 03/11/24 16:48 77 03/11/24 16:48 115/63 03/11/24 16:45 94 03/11/24 16:45 81 03/11/24 16:43 95 03/11/24 16:43 77 03/11/24 16:38 95 03/11/24 16:38 85 03/11/24 16:33 95 03/11/24 16:33 85 03/11/24 16:33 21 118/63 03/11/24 16:28 96 03/11/24 16:28 89 03/11/24 16:23 96 03/11/24 16:23 91 H 03/11/24 16:18 90 03/11/24 16:18 116/64 03/11/24 16:18 96 03/11/24 16:18 97 H 03/11/24 16:13 97 03/11/24 16:13 117 H 03/11/24 16:08 96 03/11/24 16:08 100 H 03/11/24 16:03 96 03/11/24 16:03 94 H 20 03/11/24 16:03 123/78 03/11/24 15:58 96 03/11/24 15:58 102 H 03/11/24 15:53 96 03/11/24 15:53 103 H 03/11/24 15:49 73 03/11/24 15:49 105/58 L 03/11/24 15:48 97 03/11/24 15:48 76 03/11/24 15:43 96 03/11/24 15:43 86 03/11/24 15:42 86 03/11/24 15:42 109/63 03/11/24 15:40 91 H 03/11/24 15:40 115/66 03/11/24 15:38 96 03/11/24 15:38 85 03/11/24 15:33 96 03/11/24 15:33 77 03/11/24 15:33 20 110/61 03/11/24 15:28 96 03/11/24 15:28 81 03/11/24 15:23 95 03/11/24 15:23 80 03/11/24 15:18 97 03/11/24 15:18 92 H 03/11/24 15:17 96 H 03/11/24 15:17 118/72 03/11/24 15:13 96 03/11/24 15:13 89 03/11/24 15:12 85 03/11/24 15:12 116/64 03/11/24 15:08 95 03/11/24 15:08 89 03/11/24 15:07 85 03/11/24 15:07 18 115/65 03/11/24 15:03 95 03/11/24 15:03 88 03/11/24 15:02 94 03/11/24 15:02 85 03/11/24 15:02 110/61 03/11/24 14:58 95 03/11/24 14:58 87 03/11/24 14:57 84 03/11/24 14:57 111/57 L 03/11/24 14:56 94 03/11/24 14:56 86 03/11/24 14:54 86 03/11/24 14:54 113/64 03/11/24 14:53 95 03/11/24 14:53 86 03/11/24 14:52 88 03/11/24 14:52 122/62 03/11/24 14:50 88 03/11/24 14:50 114/55 L 03/11/24 14:48 88 03/11/24 14:48 114/60 03/11/24 14:48 95 03/11/24 14:48 86 03/11/24 14:46 85 03/11/24 14:46 126/72 03/11/24 14:44 72 03/11/24 14:44 122/76 03/11/24 14:43 96 03/11/24 14:43 76 03/11/24 14:43 122/70 03/11/24 14:38 97 03/11/24 14:38 90 03/11/24 14:33 95 03/11/24 14:33 86 03/11/24 14:28 97 03/11/24 14:28 80 03/11/24 14:23 97 03/11/24 14:23 79 03/11/24 13:58 22 03/11/24 13:58 22 03/11/24 13:58 80 03/11/24 13:58 121/68 03/11/24 13:58 36.6 C 03/11/24 12:04 21 03/11/24 12:04 36.7 C 21 03/11/24 12:04 83 03/11/24 12:04 113/69 03/11/24 11:02 91 H 03/11/24 11:02 116/61 03/11/24 09:59 20 03/11/24 09:59 36.9 C 20 03/11/24 09:59 90 03/11/24 09:59 108/61 03/11/24 08:27 36.4 C L 100 H 20 115/72 03/11/24 08:17 100 H 115/72 03/11/24 08:12 20 03/11/24 08:12 36.4 C L 20 Transfer of Care Handoff Completed per policy Notes Mental Status: alert / awake / arousable and participated in evaluation Patient Amnestic to Procedure: No Nausea / Vomiting: adequately controlled Pain: adequately controlled Airway Patency, RR, SpO2: stable & adequate BP & HR: stable & adequate Hydration State: stable & adequate Neuraxial Anesthesia: was administered and sensory block is resolving Anesthetic Complications: no major complications apparent and Pt Satisfied with anesthetic care
[2024-03-11] MEDS ORDERED: HYDROCORTISONE ACETATE 25 MG SUPP PR PRN (22:54)
[2024-03-11] MEDS ORDERED: BENZOCAINE 20% SPRY 85 APPLN/85 GM CAN EXT PRN (22:54)
[2024-03-11] MEDS ORDERED: SENNA 8.6 MG TAB PO PRN (22:54)
[2024-03-11] MEDS ORDERED: MAGNESIUM HYDROXIDE SUSP 30 ML UDC PO PRN (22:54)
[2024-03-11] MEDS ORDERED: OXYTOCIN 10 UNITS in LACTATED RINGER'S 1,000 ML IV SCH (23:00)
[2024-03-12] MEDS: OXYTOCIN 30 UNITS/LR 1,003 ML IV SCH (00:03)
[2024-03-12] MEDS: HYDROmorphone INJ 0.5 MG/0.5 ML SYR IV PRN (01:08)
--- NOTE | 2024-03-12 06:10 | Obstetrical Progress Note ---
Date of Service March 12, 2024 Assessment & Plan (1) care following delivery: Plan: Doing well Remove booker Encourage ambulation Pain control Routine post op care Admission and Anticipated Discharge Date Admission Date: March 11, 2024 Supervising Physician Co-Signing Physician Notes Resident Physician Supervision Note: I interviewed and examined the patient. Discussed with Dr. Vallejo and agree with findings and plan as documented in the note. Any exceptions or clarifications are listed here: [ ] Documented By: Fernanda Kaye MD, FACOG Subjective 24 yo GP1 post op day 1 s/p Ambulation: not yet ambulating Voiding: booker remains in place Passing Gas:: Yes Diet Tolerance:: regular diet Lochia:: Small Feeding Type:: breast feeding Current Pain Level: minimal Resting comfortably this AM in NAD. Denies GOODSON, CP, SOB, N/V/D, LE pain/swelling. Review of Systems Review of Systems: reviewed, per HPI Physical Exam Physical Exam: General: patient resting comfortably, NAD, non-toxic in appearance, answers questions appropriately. Skin: warm, dry, intact HEENT: NC/AT, anicteric sclera, conjunctiva without injection, moist mucus membranes. Heart: +S1/S2, regular, no m/r/g Lungs: equal air entry bilaterally, no rales/rhonchi/wheezes Abd: +BS, soft, NT/ND, uterine fundus firm at umbilicus, caesarean incision C/D/I. : booker in place Ext: warm, no clubbing/cyanosis or edema, Sotero's neg. Neuro: nonfocal, speech intact, no facial droop, moving all extremities. Results & Data Vital Signs (Past 12 Hours) Vital Signs Temp Pulse Pulse Resp BP BP Pulse Ox 03/12/24 05:45 18 94 03/12/24 05:00 18 95 03/12/24 04:15 18 96 03/12/24 03:09 36.7 C 87 18 116/70 95 03/12/24 03:08 18 03/12/24 02:00 18 95 03/12/24 01:00 18 94 03/12/24 00:07 37.2 C 18 111/70 94 03/11/24 23:07 37.2 C 120/71 95 03/11/24 23:07 36.6 C 120/71 95 03/11/24 23:07 18 96 03/11/24 22:36 96 03/11/24 22:36 95 H 03/11/24 22:31 95 03/11/24 22:31 96 H 03/11/24 22:27 96 H 03/11/24 22:27 128/66 03/11/24 22:26 96 03/11/24 22:26 94 H 03/11/24 22:21 96 03/11/24 22:21 100 H 03/11/24 22:16 96 03/11/24 22:16 100 H 03/11/24 22:11 95 03/11/24 22:11 102 H 03/11/24 22:08 94 03/11/24 22:08 96 H 03/11/24 22:07 18 03/11/24 22:07 95 H 03/11/24 22:07 130/63 03/11/24 22:06 95 03/11/24 22:06 102 H 03/11/24 22:01 95 03/11/24 22:01 91 H 03/11/24 21:56 94 03/11/24 21:56 93 H 03/11/24 21:53 94 03/11/24 21:53 93 H 03/11/24 21:51 95 03/11/24 21:51 97 H 03/11/24 21:47 94 03/11/24 21:47 95 H 03/11/24 21:47 93 H 03/11/24 21:47 128/72 03/11/24 21:46 95 03/11/24 21:46 95 H 03/11/24 21:41 95 03/11/24 21:41 100 H 03/11/24 21:40 94 03/11/24 21:40 92 H 03/11/24 21:37 18 03/11/24 21:36 94 03/11/24 21:36 96 H 03/11/24 21:35 94 03/11/24 21:35 102 H 03/11/24 21:31 97 03/11/24 21:31 100 H 03/11/24 21:27 91 H 03/11/24 21:27 123/70 03/11/24 21:26 95 03/11/24 21:26 93 H 03/11/24 21:21 98 03/11/24 21:21 96 H 03/11/24 21:16 96 03/11/24 21:16 100 H 03/11/24 21:11 95 03/11/24 21:11 95 H 03/11/24 21:07 18 03/11/24 21:06 96 03/11/24 21:06 86 03/11/24 21:01 97 03/11/24 21:01 90 03/11/24 20:58 109/65 03/11/24 20:57 18 03/11/24 20:56 97 03/11/24 20:56 92 H 03/11/24 20:54 94 03/11/24 20:54 92 H 03/11/24 20:51 96 03/11/24 20:51 89 03/11/24 20:48 88 03/11/24 20:48 114/59 L 03/11/24 20:47 18 03/11/24 20:46 96 03/11/24 20:46 99 H 03/11/24 20:45 93 03/11/24 20:45 101 H 03/11/24 20:41 97 03/11/24 20:41 90 03/11/24 20:38 80 03/11/24 20:38 108/58 L 03/11/24 20:37 18 03/11/24 20:36 98 03/11/24 20:36 86 03/11/24 20:31 98 03/11/24 20:31 89 03/11/24 20:28 83 03/11/24 20:28 117/58 L 03/11/24 20:27 18 03/11/24 20:26 97 03/11/24 20:26 94 H 03/11/24 20:21 98 03/11/24 20:21 88 03/11/24 20:19 85 03/11/24 20:19 116/59 L 03/11/24 20:17 18 03/11/24 20:16 98 03/11/24 20:16 87 03/11/24 20:13 83 03/11/24 20:13 111/56 L 03/11/24 20:11 92 03/11/24 20:11 85 03/11/24 20:07 36.9 C 18 03/11/24 20:07 88 03/11/24 20:07 113/58 L 03/11/24 20:06 97 03/11/24 20:06 88 03/11/24 19:08 96 03/11/24 19:08 102 H 03/11/24 19:03 97 03/11/24 19:03 100 H 03/11/24 19:03 134/76 03/11/24 18:58 96 03/11/24 18:58 102 H 03/11/24 18:53 96 03/11/24 18:53 96 H 03/11/24 18:48 96 03/11/24 18:48 97 H 03/11/24 18:48 127/77 03/11/24 18:43 97 03/11/24 18:43 104 H 03/11/24 18:38 97 03/11/24 18:38 89 03/11/24 18:34 94 03/11/24 18:34 85 03/11/24 18:33 95 03/11/24 18:33 83 03/11/24 18:33 111/67 03/11/24 18:28 94 03/11/24 18:28 86 03/11/24 18:28 94 03/11/24 18:28 82 03/11/24 18:23 94 03/11/24 18:23 79 03/11/24 18:18 96 03/11/24 18:18 93 H 03/11/24 18:18 118/64 03/11/24 18:16 93 03/11/24 18:16 83 03/11/24 18:13 95 03/11/24 18:13 86 03/11/24 18:10 94 03/11/24 18:10 82 03/11/24 18:08 96 03/11/24 18:08 84 O2 Del Method 03/12/24 05:45 03/12/24 05:00 03/12/24 04:15 03/12/24 03:09 Room Air 03/12/24 03:08 03/12/24 02:00 03/12/24 01:00 03/12/24 00:07 Room Air 03/11/24 23:07 Room Air 03/11/24 23:07 Room Air 03/11/24 23:07 03/11/24 22:36 03/11/24 22:36 03/11/24 22:31 03/11/24 22:31 03/11/24 22:27 03/11/24 22:27 03/11/24 22:26 03/11/24 22:26 03/11/24 22:21 03/11/24 22:21 03/11/24 22:16 03/11/24 22:16 03/11/24 22:11 03/11/24 22:11 03/11/24 22:08 03/11/24 22:08 03/11/24 22:07 03/11/24 22:07 03/11/24 22:07 03/11/24 22:06 03/11/24 22:06 03/11/24 22:01 03/11/24 22:01 03/11/24 21:56 03/11/24 21:56 03/11/24 21:53 03/11/24 21:53 03/11/24 21:51 03/11/24 21:51 03/11/24 21:47 03/11/24 21:47 03/11/24 21:47 03/11/24 21:47 03/11/24 21:46 03/11/24 21:46 03/11/24 21:41 03/11/24 21:41 03/11/24 21:40 03/11/24 21:40 03/11/24 21:37 03/11/24 21:36 03/11/24 21:36 03/11/24 21:35 03/11/24 21:35 03/11/24 21:31 03/11/24 21:31 03/11/24 21:27 03/11/24 21:27 03/11/24 21:26 03/11/24 21:26 03/11/24 21:21 03/11/24 21:21 03/11/24 21:16 03/11/24 21:16 03/11/24 21:11 03/11/24 21:11 03/11/24 21:07 03/11/24 21:06 03/11/24 21:06 03/11/24 21:01 03/11/24 21:01 03/11/24 20:58 03/11/24 20:57 03/11/24 20:56 03/11/24 20:56 03/11/24 20:54 03/11/24 20:54 03/11/24 20:51 03/11/24 20:51 03/11/24 20:48 03/11/24 20:48 03/11/24 20:47 03/11/24 20:46 03/11/24 20:46 03/11/24 20:45 03/11/24 20:45 03/11/24 20:41 03/11/24 20:41 03/11/24 20:38 03/11/24 20:38 03/11/24 20:37 03/11/24 20:36 03/11/24 20:36 03/11/24 20:31 03/11/24 20:31 03/11/24 20:28 03/11/24 20:28 03/11/24 20:27 03/11/24 20:26 03/11/24 20:26 03/11/24 20:21 03/11/24 20:21 03/11/24 20:19 03/11/24 20:19 03/11/24 20:17 03/11/24 20:16 03/11/24 20:16 03/11/24 20:13 03/11/24 20:13 03/11/24 20:11 03/11/24 20:11 03/11/24 20:07 Room Air 03/11/24 20:07 03/11/24 20:07 03/11/24 20:06 03/11/24 20:06 03/11/24 19:08 03/11/24 19:08 03/11/24 19:03 03/11/24 19:03 03/11/24 19:03 03/11/24 18:58 03/11/24 18:58 03/11/24 18:53 03/11/24 18:53 03/11/24 18:48 03/11/24 18:48 03/11/24 18:48 03/11/24 18:43 03/11/24 18:43 03/11/24 18:38 03/11/24 18:38 03/11/24 18:34 03/11/24 18:34 03/11/24 18:33 03/11/24 18:33 03/11/24 18:33 03/11/24 18:28 03/11/24 18:28 03/11/24 18:28 03/11/24 18:28 03/11/24 18:23 03/11/24 18:23 03/11/24 18:18 03/11/24 18:18 03/11/24 18:18 03/11/24 18:16 03/11/24 18:16 03/11/24 18:13 03/11/24 18:13 03/11/24 18:10 03/11/24 18:10 03/11/24 18:08 03/11/24 18:08 Resident Activity Tracking Resident Involvement: Resident Care Provided Care Provided: Adult Hospital Medicine
[2024-03-12] MEDS: PRENATAL VITAMIN 1 TAB PO SCH (08:42)
[2024-03-12] MEDS: DOCUSATE SODIUM 100 MG CAP PO SCH (08:42)
[2024-03-12] MEDS: SIMETHICONE 80 MG CHEW PO SCH (08:42)
[2024-03-12] MEDS: FERROUS SULFATE 325 MG TAB PO SCH (08:43)
[2024-03-12] MEDS: LACTATED RINGER'S 1,000 ML IV SCH (08:48)
[2024-03-12 10:07] LABS: Basophils # (auto) 0.02 K/uL (0.00-0.20); Basophils % (auto) 0.2 %; Eosinophils # (auto) 0.04 K/uL (0.00-0.50); Eosinophils % (auto) 0.4 %; Hematocrit (blood only) 28.6 % (37.0-47.0); Hemoglobin 9.5 g/dl (12.0-16.0); Immature Granulocytes # (auto) 0.04 K/uL (0.01-0.20); Immature Granulocytes % (auto) 0.4 %; Lymphocytes # (auto) 1.98 K/uL (1.20-3.40); Mean Corpuscular Hemoglobin 31.5 pg (25.0-34.0); Mean Corpuscular Hgb Conc 33.2 g/dL (32.0-36.0); Mean Corpuscular Volume 94.7 fL (80.0-100.0); Mean Platelet Volume 11.3 fL (9.4-12.4); Monocytes # (auto) 0.76 K/uL (0.11-0.59); Monocytes % (auto) 7.3 %; Neutrophils # (auto) 7.59 K/uL (1.40-6.50); Neutrophils % (auto) 72.7 %; Platelet Count 140 K/uL (130-400); RDW Coefficient of Variation 12.6 % (11.5-14.5); Red Blood Count 3.02 M/uL (4.20-5.40); White Blood Count 10.43 K/ul (4.8-10.8)
[2024-03-12] MEDS ORDERED: PROMETHAZINE HCL 25 MG in SODIUM CHLORIDE 0.9% 50 ML IV PRN (13:48)
[2024-03-12] MEDS ORDERED: MEPERIDINE HCL 50 MG/ML CARP IV PRN (13:48)
[2024-03-12] MEDS ORDERED: ONDANSETRON INJ 2 MG/ML 2 ML VIAL IV PRN (13:48)
[2024-03-12] MEDS ORDERED: KETOROLAC 30 MG/ML VIAL IV PRN (13:48)
[2024-03-12] MEDS ORDERED: diphenhydrAMINE Capsule 25 MG CAP PO PRN (13:48)
[2024-03-12] MEDS ORDERED: diphenhydrAMINE 50 MG/ML VIAL IV PRN (13:48)
--- NOTE | 2024-03-12 14:59 | Electrocardiogram Report ---
Test Reason : Blood Pressure : / mmHG Vent. Rate : 092 BPM Atrial Rate : 092 BPM P-R Int : 168 ms QRS Dur : 094 ms QT Int : 364 ms P-R-T Axes : 023 040 008 degrees QTc Int : 450 ms Normal sinus rhythm Possible Inferior infarct , age undetermined Abnormal ECG No previous ECGs available Confirmed by Gunnar Bass ([id number]) on 03/12/2024 2:59:02 PM Referred By: Fernanda Kaye Confirmed By:Gunnar Bass
[2024-03-12] MEDS: DIPHTHER/TETAN/PERTUS Vaccine (Tdap, Adol/Adult) 0.5mL IM ONE (17:02)
[2024-03-12] MEDS: IBUPROFEN 600 MG TAB PO PRN (17:03)
[2024-03-12] MEDS: bisacodyL 5 MG TABEC PO SCH (20:47)
[2024-03-13] MEDS: oxyCODONE/ACETAMINOPHEN 5mg/325mg TAB PO PRN (05:55)
--- NOTE | 2024-03-13 06:42 | Obstetrical Progress Note ---
Date of Service March 13, 2024 Assessment & Plan (1) care following delivery: Plan: Doing well Remove booker Encourage ambulation Pain control dc today Admission and Anticipated Discharge Date Admission Date: March 11, 2024 Supervising Physician Co-Signing Physician Notes Resident Physician Supervision Note: I interviewed and examined the patient. Discussed with Dr. Vallejo and agree with findings and plan as documented in the note. Any exceptions or clarifications are listed here: POD#2 doing well. Desires DC home. Rx Percocet sent. Instructions reviewed. Followup 6w PP. Documented By: Jyoti Samuel, Subjective 24 yo GP1 post op day 2 s/p Ambulation: not yet ambulating Voiding: booker remains in place Passing Gas:: Yes Diet Tolerance:: regular diet Lochia:: Small Feeding Type:: breast feeding Current Pain Level: minimal Resting comfortably this AM in NAD. Denies [place], CP, SOB, N/V/D, LE pain/swelling. Review of Systems Review of Systems: reviewed, per HPI Physical Exam Physical Exam: General: patient resting comfortably, NAD, non-toxic in appearance, answers questions appropriately. Skin: warm, dry, intact HEENT: NC/AT, anicteric sclera, conjunctiva without injection, moist mucus membranes. Heart: +S1/S2, regular, no m/r/g Lungs: equal air entry bilaterally, no rales/rhonchi/wheezes Abd: +BS, soft, NT/ND, uterine fundus firm at umbilicus, caesarean incision C/D/I. : booker in place Ext: warm, no clubbing/cyanosis or edema, Sotero's neg. Neuro: nonfocal, speech intact, no facial droop, moving all extremities. Results & Data Vital Signs (Past 12 Hours) Vital Signs Temp Pulse Resp BP Pulse Ox O2 Del Method 03/12/24 23:45 36.7 C 82 20 105/66 96 Room Air 03/12/24 20:00 36.6 C 88 18 106/61 96 Room Air Resident Activity Tracking Resident Involvement: Resident Care Provided Care Provided: Adult [facility] Medicine
[2024-03-13 08:25] LABS: Hematocrit (blood only) 30.8 % (37.0-47.0); Hemoglobin 10.7 g/dl (12.0-16.0)
[2024-03-13] MEDS ORDERED: bisacodyL 10 MG SUPP PR PRN (22:55)
== END 2024-03-13 15:05 | disposition home or self-care (01) | DRG 788 ==
LOC: 4S1 08:09 → 4E2 23:39